=== PATIENT | male | born 1975 | race Caucasian/White ===

== ENCOUNTER 2024-08-12 08:54 | Emergency (ER) | payer SELFPAY ==
[2024-08-12 09:07] VITALS: BP 110/62; PULSE 63
[2024-08-12 09:19] VITALS: BP 99/63; PULSE 112; RESP 16; TEMP 37.1; O2SAT 95; BMI 16.4
[2024-08-12 10:10] LABS: MANUAL DIFF FLAG NO
[2024-08-12 10:12] LABS: Basophils Absolute Auto 0.1 X10*3/uL (0.0-0.2); Basophils Percent Auto 0.6 % (0-2); Hematocrit 39.1 % (42.0-52.0); Hemoglobin 12.4 g/dl (14.0-18.0); Imm Gran Abs Auto 0.03 X10*3/uL (0.00-0.03); Imm Gran Pct Auto 0.3 % (0.0-0.4); Lymphocytes Absolute Auto 0.8 X10*3/uL (1.2-4.9); Lymphocytes Percent Auto 7.6 % (20-40); Mean Corpuscular HGB Conc 31.7 g/dl (31.0-36.0); Mean Corpuscular Volume 85.2 fL (80.0-98.0); Monocytes Percent Auto 9.2 % (2-11); Neutrophils Absolute Auto 8.5 x10*3/uL (2.0-8.3); Neutrophils Percent Auto 82.3 % (45-73); Platelet Count 555 X10*3/uL (160-400); Red Blood Count 4.59 X10*6/uL (4.60-5.80); Red Cell Distribution Width 14.7 % (11.0-16.0); White Blood Count 10.3 X10*3/uL (4.8-10.8)
[2024-08-12 10:29] LABS: Alanine Aminotransferase < 6 U/L (0-40); Albumin Level 3.5 g/dL (3.5-5.0); Alkaline Phosphatase 127 U/L (39-117); Anion Gap 13 (12-20); Aspartate Amino Transferase 30 U/L (5-37); Bilirubin Total 0.3 mg/dL (0.0-1.0); Blood Urea Nitrogen 12 mg/dL (9-16); Calcium 9.2 mg/dL (8.4-10.2); Carbon Dioxide 30 mmol/L (22-29); Chloride 94 mmol/L (96-108); Estimated Glomerular Filt Rate > 60; Glucose Random 92 mg/dL (60-115); Potassium 4.5 mmol/L (3.3-5.1); Sodium 132 mmol/L (135-145); Total Protein 8.1 g/dL (6.5-8.0)
== END 2024-08-12 17:43 | disposition left against medical advice (07) ==
LOC: HO.ED 17:13
PROVIDERS: Emergency Provider Emergency Medicine
DX: R20.0 Anesthesia of skin (principal); M79.672 Pain in left foot; M79.671 Pain in right foot; F17.210 Nicotine dependence, cigarettes, uncomplicated; Z59.02 Unsheltered homelessness; Z53.21 Procedure and treatment not carried out due to patient leaving prior to being seen by health care provider
CPT/HCPCS: 36415; 80053; 85025; 99281

== ENCOUNTER 2024-08-15 12:56 | Inpatient (IN) | payer SELFPAY ==
[2024-08-15] VITALS (11 sets, daily range): BP systolic 82–102; BP diastolic 49–69; PULSE 83–136; RESP 15–24; TEMP 36.7–37.2; O2SAT 93–100; BMI 15.8
--- NOTE | ~2024-08-15 | CT_ITS ---
CLINICAL HISTORY: sepsis CT abdomen and pelvis with contrast Comparison: None Findings: Elevated left hemidiaphragm with left sided pleural effusion and opacities partially visualized. Cystic changes on the right with subpleural cyst 6.7 cm. The gallbladder is somewhat contracted. No biliary ductal dilatation. The liver is enlarged with no focal abnormality. Splenic dome not imaged and otherwise the spleen is unremarkable. Adrenal glands are normal. Enhancement of bilateral kidneys with no ureteral stones and no hydronephrosis hydroureter. No bowel obstruction, pneumoperitoneum, or pneumatosis. Fluid-filled small bowel loops in lower abdomen and pelvis, likely mild small bowel ileus. Mild pelvic free fluid. Appendix is unremarkable. Pelvic structures within limits Mild atherosclerotic vascular disease. No aneurysm of the abdominal aorta. No acute osseous findings IMPRESSION: 1. Findings suggestive mild small bowel ileus. No bowel obstruction or pneumoperitoneum. 2. Mild pelvic free fluid. 3. Hepatomegaly. This document has been electronically signed by: Heaven Morales MD on 08/16/2024 04:26:45
--- NOTE | ~2024-08-15 | CT_ITS ---
CLINICAL HISTORY: SOB CT angiography chest with contrast. 3D Postprocessing. Comparison: None Findings: The heart is normal size. RV/LV ratio is normal. Thoracic aorta is normal in size with no aneurysm and no aortic dissection. No intraluminal filling defects in pulmonary arterial vessels to suggest pulmonary embolism. Significant volume loss in left hemithorax with truncated vessels but the existing vessels demonstrate no intraluminal filling defect. Significant changes in the left hemithorax with mediastinal shift to the left likely postoperative in nature. Within the left hemithorax no significant remaining lung parenchyma is visualized with left-sided pleural effusion and mottled air with larger airspaces toward the lung apex. The right lung is hyperexpanded and there are chronic appearing changes in the right upper lobe/right lung apex with thickening and cystic spaces. There is enlarged cyst in the right lower lobe anteriorly and inferiorly. Thyroid normal limits. No acute osseous process. IMPRESSION: 1. No pulmonary embolus. 2. Significant volume loss in left hemithorax with mediastinal shift to the left likely post pneumonectomy. In the left hemithorax there is fluid and mottled air with larger air loculation toward the lung apex. The acuity of this process is unclear as there are no previous studies. Infection is not excluded. 3. Hyperexpanded right lung with thickening in cystic changes and septations in the region of the apex and again this could be chronic but no previous studies are available for comparison. This document has been electronically signed by: Heaven Morales MD on 08/16/2024 04:37:34
--- NOTE | ~2024-08-15 | XR_ITS ---
EXAMINATION: XR CHEST CLINICAL INFORMATION: shortness of breath COMPARISON: Chest 01/03/2008 TECHNIQUE: 2 views of the chest were obtained. FINDINGS: There is chronic pleural/parenchymal changes in left lung with loss of left lung volume. Strands of chronic pleural and parenchymal scarring is seen in the right upper lobe is slightly hyperinflated right lung and contralateral shift to left. Heart size and great vessels are normal caliber. No gross bony abnormality seen. No pneumothorax. There is mild bilateral apical pleural thickening. XR/XR chest 2V IMPRESSION: Chronic left lung parenchymal scarring with loss of left lung volume and ipsilateral mediastinal shift. Than of chronic scarring atelectasis seen in the right upper lobe with hyperexpanded right lung. Electronically signed by: Yash Diaz MD 08/15/2024 02:07 PM [facility]
--- NOTE | 2024-08-15 13:07 | ED_ITS ---
HPI - General Adult General Chief complaint: Dyspnea Stated complaint: Diff breathing, weakness Time Seen by Provider: 08/15/24 15:35 Source: patient Mode of arrival: ambulatory Limitations: no limitations History of Present Illness HPI narrative: This is a 49 years old male presented to the emergency department complaining of generalized weakness cough generalized malaise. Symptoms have been going on for few days. Denies any fever or chills. He has a history of left upper lobe wedge resection he has a history of left pneumothorax and left pleurodesis in 2007 Onset (ago): day(s) Location: chest Radiation: non-radiation Severity: moderate Pain Consistency: constant Relieving factors: none Exacerbating factors: none Associated symptoms: denies other symptoms Related Data Home Medications ?Medication ?Instructions ?Recorded ?Confirmed No Known Home Meds 08/15/24 08/15/24 Allergies Allergy/AdvReac Type Severity Reaction Status Date / Time aspartame [Aspartame] Allergy Mild RED RINGS Verified 08/15/24 13:10 ON BODY TO [employer] saccharin [Saccharin] Allergy Mild RED RINGS Verified 08/15/24 13:10 ON BODY TO [employer] SWE[employer]EN[employer] ARTIFICIAL COLORING Allergy Mild UNKNOWN Uncoded 04/02/20 15:00 Review of Systems 2 Constitutional: Constitutional: Reports no additional constitutional complaints Respiratory: Respiratory: Reports no additional respiratory complaints and Reports chest congestion [facility] Past Medical History [facility] Narrative: Left pneumothorax/left pleurodesis/left wedge resection Social History Social History Smoked in Last 30 Days: Yes Use of substances other than those prescribed or required for medical reasons: Yes Substance Use Type: Marijuana Advance Directives: No Advance Directives Information Provided: Yes Physical Exam ED Vital Signs: Vital Signs - 24 hr 08/15/24 13:08 08/15/24 15:16 08/15/24 15:52 Temperature 98.1 F 99 F Pulse Rate 136 H 109 H 100 Respiratory Rate 18 21 H 24 H Blood Pressure 102/49 L 92/58 L Pulse Oximetry 98 95 96 Oxygen Delivery Method Room Air Room Air 08/15/24 16:07 08/15/24 16:26 08/15/24 16:45 Temperature Pulse Rate 99 99 99 Respiratory Rate 18 22 H 22 H Blood Pressure 97/69 93/64 96/64 Pulse Oximetry 97 96 96 Oxygen Delivery Method Room Air BMI result Body Mass Index 15.8 Looks not toxic Const General: cooperative, comfortable and no acute distress Nutritional Appearance: cachectic Orientation/consciousness: patient oriented x3 Limitations: no limitations HENMT Head: Yes normal to inspection General nose exam: Normal external nose present Face and sinus: Yes normal facial exam Mouth: Normal oral and palatal mucosa present Neck Neck: Yes normal visual inspection Chest Chest palpation & inspection: normal inspection of the chest Resp Effort & Inspection: normal respiratory effort Cardio Rate: regular rate Rhythm: regular rhythm GI Inspection: Yes normal to inspection Palpation (GI): Soft to palpation, not firm and nontender Skin General skin exam: no rashes or lesions noted and elasticity normal Lesions: no lesions Rashes: no rashes Neuro General: patient oriented x3 Cognition (Neuro): normal cognition Gait exam (Neuro): Normal gait present Motor exam (neuro): 5/5 motor strength present throughout Course Course Course Narrative: RME, this is a rapid medical exam performed by Jeffry Sim please refer to primary provider for complete H&P- 49-year-old male presents for evaluation of shortness of breath. He reports short of breath for about a week and 3 days of hemoptysis. He was tachycardic in triage. Plan for labs, chest x-ray. Reevaluation(s) Reevaluation #1: Patient looks well is not toxic-appearing his initial tachycardia is now resolved ;he has a map more than 65. White count noted lactic acid also noted. He was given 30 cc/kilos of IV fluids, he was given also IV antibiotic cefepime vanco. Chest x-ray reviewed by me is abnormal but he has a baseline abnormal chest x-ray. Clinical picture is consistent most likely with pneumonitis. TB comes to mind but he has been negative in the past, and tells me that he he has been admitted in the past a [facility] he was rule out for active TB. We will send the t spot anyway. I discussed the case with the hospitalist Dr. Cordova it is reasonable also to get chest CT which has been ordered. Clinically looks well he is eating and drinking his mentation is great , he has excellent capillary refill Time: 16:36 Medications Administered Generic Name Dose Route Start Last Admin Trade Name Freq PRN Reason Stop Dose Admin Vancomycin HCl 1,250 mg/ 250 mls @ 166.667 mls/hr 08/15/24 16:45 08/15/24 16:42 Sodium Chloride IV 08/15/24 18:14 166.67 mls/hr ONCE ONE Administration Sodium Chloride 1,000 mls @ 150 mls/hr 08/15/24 16:45 08/15/24 16:45 Ns IVCONT 150 mls/hr .[id number] JAKE Administration Discontinued Medications Generic Name Dose Route Start Last Admin Trade Name Freq PRN Reason Stop Dose Admin Cefepime HCl 2 gm in 50 mls @ 100 mls/hr 08/15/24 15:29 08/15/24 16:27 Maxipime IV 08/15/24 15:58 Infused ONCE ONE Infusion Sodium Chloride 1,497 mls @ 1,497 mls/hr 08/15/24 15:29 08/15/24 16:27 Ns 30 ml/kg infuse over 1 hr (1497 ml) 08/15/24 16:28 Infused IV Infusion .Q1H STA Medical Decision Making Medical Decision Making [facility] Narrative: Patient presented generalized weakness malaise will obtain a chest x-ray labs and reassess Differential Diagnosis Differential Diagnoses: The differential diagnosis associated with the presentation includes Flu/pneumonia/anemia Admission/Observation Consideration of admission/observation: Escalation of care including admission/observation considered Consult Healthcare Provider Management of the patient was discussed with: Hospitalist Lab Data [facility] Lab Attestation statement: I reviewed the patient's lab results. 08/15/24 13:37 08/15/24 13:37 Labs: Lab Results 08/15/24 Range/Units 13:37 WBC 25.4 H (4.8-10.8) X10*3/uL RBC 4.03 L (4.60-5.80) X10*6/uL Hgb 10.8 L (14.0-18.0) g/dl Hct 34.4 L (42.0-52.0) % MCV 85.4 (80.0-98.0) fL MCH 26.8 L (27.0-33.0) pg MCHC 31.4 (31.0-36.0) g/dl RDW 14.8 (11.0-16.0) % Plt Count 527 H (160-400) X10*3/uL MPV 8.7 L (9.4-12.4) fL Immature Gran % (Auto) 0.8 H (0.0-0.4) % Neut % (Auto) 84.9 H (45-73) % Lymph % (Auto) 5.9 L (20-40) % [place] % (Auto) 7.7 (2-11) % Eos % (Auto) 0.4 (0-4) % Baso % (Auto) 0.3 (0-2) % Lymph # (Auto) 1.5 (1.2-4.9) X10*3/uL [place] # (Auto) 2.0 H (0.1-1.2) X10*3/uL Eos # (Auto) 0.1 (0.0-0.4) X10*3/uL Baso # (Auto) 0.1 (0.0-0.2) X10*3/uL Abs Immat Gran (auto) 0.20 H (0.00-0.03) X10*3/uL Absolute Neuts (auto) 21.6 H (2.0-8.3) x10*3/uL Absolute Nucleated RBC 0.000 (0.0-0.012) X10*3/uL Nucleated RBC % (auto) 0.0 (0.0-0.2) /100WBC Smear Tech's Comments VERIFIED PT 12.4 (10.9-12.4) SEC INR 1.1 (0.9-1.1) Sodium 130 L (135-145) mmol/L Potassium 4.4 (3.3-5.1) mmol/L Chloride 92 L (96-108) mmol/L Carbon Dioxide 27 (22-29) mmol/L Anion Gap 15 (12-20) BUN 10 (9-16) mg/dL Creatinine 0.59 (0.5-1.4) mg/dL Estim Creat Clear Calc 104.5 Estimated GFR > 60 Random Glucose 91 (60-115) mg/dL Lactic Acid 4.0 H* (0.5-2.0) mmol/L Calcium 9.0 (8.4-10.2) mg/dL Total Bilirubin 0.4 (0.0-1.0) mg/dL AST 33 (5-37) U/L ALT 7 (0-40) U/L Alkaline Phosphatase 100 (39-117) U/L Troponin I High Sens 9.6 (<3.5-35.0) ng/L Total Protein 8.2 H (6.5-8.0) g/dL Albumin 3.6 (3.5-5.0) g/dL Lipase 23 (8-78) U/L Influenza Type A (PCR) NEGATIVE (Negative) Influenza Type B (PCR) NEGATIVE (Negative) RSV RNA Qual (PCR) NEGATIVE (Negative) SARS-CoV-2 RNA (RT-PCR) NEGATIVE (Negative) Independent Interpretation I performed an independent interpretation of an: Plain X-Ray Interpretation: Chronic changes Radiology Impression Discussion of test interpretation with radiology: I have reviewed the radiologist's reading. Radiologist Impression: FINDINGS: There is chronic pleural/parenchymal changes in left lung with loss of left lung volume. Strands of chronic pleural and parenchymal scarring is seen in the right upper lobe is slightly hyperinflated right lung and contralateral shift to left. Heart size and great vessels are normal caliber. No gross bony abnormality seen. No pneumothorax. There is mild bilateral apical pleural thickening. XR/XR chest 2V IMPRESSION: Chronic left lung parenchymal scarring with loss of left lung volume and ipsilateral mediastinal shift. Than of chronic scarring atelectasis seen in the right upper lobe with hyperexpanded right lung. Electronically signed by: Yash Diaz MD 08/15/2024 02:07 PM [facility] Dictated By: Yash Diaz MD Signed By: <Electronically signed by Yash Diaz MD in OV> 08/15/24 1407 External Record Review External record reviewed: Inpatient record 2008 record old [facility] Prescription Management I considered prescription management with: Antibiotic Social Determinants Patient?s care significantly limited by Social Determinants of Health including: Inadequate housing and Low income Critical Care Time Critical Care Time Critical Care Time: Yes Total Critical Care Time: 60 Attestation: Lactic acidosis sepsis Discharge Plan Discharge Clinical Impression: Acidosis, lactic Sepsis Qualifiers: Sepsis type: sepsis due to unspecified organism Sepsis acute organ dysfunction status: without acute organ dysfunction Qualified Code(s): A41.9 - Sepsis, unspecified organism Patient Disposition: Admitted As Inpatient Print Language: [place]
--- NOTE | 2024-08-15 13:08 | ECG_ITS ---
Test Reason : sob Blood Pressure : */* mmHG Vent. Rate : 131 BPM Atrial Rate : 131 BPM P-R Int : 136 ms QRS Dur : 80 ms QT Int : 296 ms P-R-T Axes : 78 177 54 degrees QTcB Int : 437 ms Sinus tachycardia Right atrial enlargement Right axis deviation Septal infarct Abnormal ECG When compared with ECG of 22-Dec-2007 13:03, Increase in ventricular rate Referred By: Rodrigo Sim Electronically Signed By: KAREEM PRICE
[2024-08-15 13:50] LABS: Basophils Absolute Auto 0.1 X10*3/uL (0.0-0.2); Basophils Percent Auto 0.3 % (0-2); Eosinophils Absolute Auto 0.1 X10*3/uL (0.0-0.4); Eosinophils Percent Auto 0.4 % (0-4); Hematocrit 34.4 % (42.0-52.0); Hemoglobin 10.8 g/dl (14.0-18.0); Imm Gran Pct Auto 0.8 % (0.0-0.4); Lymphocytes Absolute Auto 1.5 X10*3/uL (1.2-4.9); Lymphocytes Percent Auto 5.9 % (20-40); MANUAL DIFF FLAG SCAN; Mean Corpuscular HGB Conc 31.4 g/dl (31.0-36.0); Mean Corpuscular Hemoglobin 26.8 pg (27.0-33.0); Mean Corpuscular Volume 85.4 fL (80.0-98.0); Mean Platelet Volume 8.7 fL (9.4-12.4); Monocytes Percent Auto 7.7 % (2-11); Neutrophils Absolute Auto 21.6 x10*3/uL (2.0-8.3); Neutrophils Percent Auto 84.9 % (45-73); Platelet Count 527 X10*3/uL (160-400); Red Blood Count 4.03 X10*6/uL (4.60-5.80); Red Cell Distribution Width 14.8 % (11.0-16.0); SCAN SMEAR FLAG 1; White Blood Count 25.4 X10*3/uL (4.8-10.8)
[2024-08-15 13:55] LABS: INTERNATIONAL NORM RATIO 1.1 (0.9-1.1); Prothrombin Time 12.4 SEC (10.9-12.4)
[2024-08-15 14:04] LABS: Alanine Aminotransferase 7 U/L (0-40); Albumin Level 3.6 g/dL (3.5-5.0); Alkaline Phosphatase 100 U/L (39-117); Anion Gap 15 (12-20); Aspartate Amino Transferase 33 U/L (5-37); Bilirubin Total 0.4 mg/dL (0.0-1.0); Blood Urea Nitrogen 10 mg/dL (9-16); Carbon Dioxide 27 mmol/L (22-29); Chloride 92 mmol/L (96-108); Creatinine Clr Calc Pharmacy 104.5; Estimated Glomerular Filt Rate > 60; Glucose Random 91 mg/dL (60-115); Lipase 23 U/L (8-78); Potassium 4.4 mmol/L (3.3-5.1); Sodium 130 mmol/L (135-145); Total Protein 8.2 g/dL (6.5-8.0)
[2024-08-15 14:08] LABS: SLIDE REVIEW VERIFIED
[2024-08-15 14:12] LABS: Troponin-I High Sensitivity 9.6 ng/L (<3.5-35.0)
[2024-08-15 14:39] LABS: Influenza A PCR NEGATIVE (Negative); Influenza B PCR NEGATIVE (Negative); Resp Syncy Virus RNA Qual PCR NEGATIVE (Negative); SARS COV2 PCR INHOUSE NEGATIVE (Negative)
[2024-08-15] MEDS: SODIUM CHLORIDE 1497 ML IV (15:42)
[2024-08-15] MEDS: cefEPime HCl/D5W 2 GM/50 ML PIGGYBACK IV (15:42)
[2024-08-15 15:46] LABS: Reflex Lactate? Lactic Acid Added
--- NOTE | 2024-08-15 16:23 | PHA.MEDREC ---
Addendum entered by Gokul Lund RPh 08/15/24 16:40: Reviewed by [facility] Original Note: Pharmacy Consult ? Medication Reconciliation Pharmacy has completed the medication reconciliation. Patient states he is not on any home medications.
[2024-08-15] MEDS: vancomycin HCL 1,250 MG in 0.9 % Sodium Chloride 250 ML 166.67 MG IV (16:42)
[2024-08-15] MEDS: 0.9 % Sodium Chloride 1,000 ML 150 ML IVCONT (16:45)
[2024-08-15 17:07] LABS: ~Lactic Acid-LAB USE ONLY 0.9 mmol/L (0.5-2.0)
--- NOTE | 2024-08-15 18:17 | PM.IMHP ---
History of Present Illness Date of Service: 08/15/24 Chief Complaint: Shortness of breaths/productive cough 49-year-old gentleman with past medical history significant for left upper lobe wedge resection, history of left pneumothorax and left pleurodesis in 2007 at [facility], currently patient is homeless, smokes half pack per day, has not smoked marijuana in last 3 months, presented with shortness of breath of 1-2 weeks associated with cough productive of thick green mucus with specks of blood, patient has chronic productive cough, denies fever, no chills, complaining of night sweats, decreased appetite in last few days, has been chronically underweight but now worse, denies risk factors for HIV, no history of hep C, has been previously tested negative for HIV, has been worked up for TB in the past at [facility] and was negative, workup in the emergency room showed WBC 25.4 with normal WBC 10.3 on August 12, sodium 130 lactic acid 4 oxygenating 97 on room air, pulse 131 tachypneic, afebrile, chest x-ray showed chronic left lung parenchymal scarring with loss of left lung volume and ipsilateral mediastinal shift and hyper expanded right lung, patient treated in ED with IV vancomycin, IV cefepime and IV fluid bolus, blood cultures and T spot sent. Patient being admitted to [facility] with severe sepsis likely due to pneumonitis. Review of Systems Review of Systems: General no headache no dizziness no fever chills. CVS no chest pain, no palpitation. Respiratory shortness of breath and cough productive of thick green phlegm with specks of blood Gastrointestinal no nausea no vomiting, no abdominal pain no urgency no frequency Skin no rash All other system reviewed and are negative. [facility] Medical History (Updated 08/16/24 @ 12:41 by Joseph Britton MD) Tobacco use Lung nodules Pneumothorax, left Surgical History (Updated 08/16/24 @ 03:58 by Sarah Chahal NP) History of lung surgery Social History Housing: Homeless Do you presently have visiting nurse or other home services: No Patient Tobacco Use Status: Current everyday Tobacco user Cigarette Packs Per Day: 0.5 Cigarettes Per Day: 10.0 Substance Use Type: Marijuana service: No Meds Allergies Allergy/AdvReac Type Severity Reaction Status Date / Time aspartame [Aspartame] Allergy Mild RED RINGS Verified 08/15/24 13:10 ON BODY TO [employer]WE[employer] saccharin [Saccharin] Allergy Mild RED RINGS Verified 08/15/24 13:10 ON BODY TO [employer] SWEETEN[employer] ARTIFICIAL COLORING Allergy Mild UNKNOWN Uncoded 04/02/20 15:00 Active Medications: Current Medications Acetaminophen (Acetaminophen 325 Mg Tablet) 650 mg PO Q6H PRN PRN Reason: Pain, Mild 1-3,fever,headache Calcium Carbonate (Calcium Carbonate 750 Mg Tab.Chew) 750 mg PO Q4H PRN PRN Reason: Heartburn Enoxaparin Sodium (Enoxaparin Sodium 40 Mg/0.4 Ml Syringe) 40 mg SUBCUT Q24H [facility]1983 Sodium Chloride (Ns) 1,000 mls @ 100 mls/hr IVCONT .Q10H JAKE Last Admin: 08/15/24 16:45 Dose: 150 mls/hr Cefepime HCl (Maxipime) 2 gm in 50 mls @ 100 mls/hr IV Q8H [facility] Magnesium Hydroxide (Milk Of Magnesia 30 Ml Oral.Susp) 30 ml PO DAILY PRN PRN Reason: Constipation Melatonin (Melatonin 3 Mg Tablet) 6 mg PO BEDTIME PRN PRN Reason: Insomnia Ondansetron HCl (Ondansetron Hcl 4 Mg/2 Ml Vial) 4 mg IVPUSH Q8H PRN PRN Reason: Nausea and Vomiting Sodium Chloride (0.9 % Sodium Chloride Flush 3 Ml Syringe) 3 ml IVFLUSH QSHIFT [facility] Home Medications ?Medication ?Instructions ?Recorded ?Confirmed ?Last Taken ?Type No Known Home Meds 08/15/24 08/15/24 Unknown History Physical Exam Vital Signs and Narrative: Vital Signs: Last Vital Signs Temp 99 F 08/15/24 15:52 Pulse 99 08/15/24 16:45 Resp 22 H 08/15/24 16:45 BP 96/64 08/15/24 16:45 Pulse Ox 96 08/15/24 16:45 O2 Del Method Room Air 08/15/24 16:07 BMI result Body Mass Index 15.8 Const: Other: General awake alert x3, frail, resting comfortably in no acute distress. Anicteric sclera Neck supple no JVD. CVS regular rate rhythm, Respiratory lungs coarse breath sounds, no respiratory distress, no wheeze Gastrointestinal abdomen soft, non tender, bowel sounds audible, no guarding , no rigidity. Extremities no edema. Neuro non focal Skin no rash Appropriate affect Results Labs 08/16/24 04:50 08/16/24 04:50 Labs: Laboratory Results - last 24 hr 08/15/24 08/15/24 13:37 16:45 MCV 85.4 MCH 26.8 L MCHC 31.4 RDW 14.8 Plt Count 527 H MPV 8.7 L Immature Gran % (Auto) 0.8 H Neut % (Auto) 84.9 H Lymph % (Auto) 5.9 L [place]ike % (Auto) 7.7 Eos % (Auto) 0.4 Baso % (Auto) 0.3 Lymph # (Auto) 1.5 [place] # (Auto) 2.0 H Eos # (Auto) 0.1 Baso # (Auto) 0.1 Abs Immat Gran (auto) 0.20 H Absolute Neuts (auto) 21.6 H Absolute Nucleated RBC 0.000 Nucleated RBC % (auto) 0.0 Smear Tech's Comments VERIFIED PT 12.4 INR 1.1 Anion Gap 15 Estim Creat Clear Calc 104.5 Estimated GFR > 60 Random Glucose 91 Lactic Acid 4.0 H* Lactic Acid F/U @ 2Hr 0.9 Calcium 9.0 Total Bilirubin 0.4 AST 33 ALT 7 Alkaline Phosphatase 100 Troponin I High Sens 9.6 Total Protein 8.2 H Albumin 3.6 Lipase 23 Influenza Type A (PCR) NEGATIVE Influenza Type B (PCR) NEGATIVE RSV RNA Qual (PCR) NEGATIVE SARS-CoV-2 RNA (RT-PCR) NEGATIVE Imaging Radiologist's Impressions: Impressions Chest X-Ray 08/15/24 13:50 IMPRESSION: Chronic left lung parenchymal scarring with loss of left lung volume and ipsilateral mediastinal shift. Than of chronic scarring atelectasis seen in the right upper lobe with hyperexpanded right lung. Electronically signed by: Yash Diaz MD 08/15/2024 02:07 PM [facility] Assessment and Plan (1) Acidosis, lactic: Status: Acute (2) Sepsis: Qualifiers: Sepsis acute organ dysfunction status: without acute organ dysfunction Sepsis type: sepsis due to unspecified organism Qualified Code(s): A41.9 - Sepsis, unspecified organism Status: Acute Plan 49-year-old gentleman with past medical history significant for left upper lobe wedge resection, history of left pneumothorax and left pleurodesis in 2008 has been ruled out for TB and HIV in the past with no risk factors for HIV, currently homeless history of smoking presented to [facility] due to generalized weakness, shortness of breath , cough productive of thick green phlegm with specks of blood, night sweats chronic weight loss patient will be admitted to medical floor with a diagnosis of severe sepsis. Severe sepsis likely due to respiratory infection/pneumonitis Noted to have acute lactic acidosis, tachypnea, tachycardia, leukocytosis Sepsis focused exam done Influenza, RSV and SARS CoV 2 RNA negative Treated with IV cefepime , IV vancomycin and IV fluid in ED, continue current antibiotic Cough medication/O2 as needed CT chest Pulmonary consult T spot sent, sputum for acid-fast bacilli, isolation for TB, check HIV Follow CBC, blood cultures and sputum culture Mild acute hyponatremia likely due to pulmonary source IV fluids/Follow BMP Tobacco use disorder declined nicotine patch, counseling done Underweight with BMI 15.8 Add supplements/nutrition consult DVT prophylaxis Lovenox subQ Full code In my clinical judgment patient require 2 night inpatient hospitalization for management of severe sepsis likely due to pneumonitis requiring IV fluids, IV antibiotics and expert consultation. Quality Stroke Does the patient have a stroke diagnosis?: No VTE Prior VTE?: No VTE Risk Level:: Medical - moderate - high VTE Device Contraindication: Treatment Not Indicated VTE Drug Contraindication: N/A - Med Ordered
[2024-08-15] MEDS: guaiFENesin LA 600 MG TAB.ER.12H PO (20:08)
[2024-08-15] MEDS: Enoxaparin Sodium 40 MG/0.4 ML SYRINGE SUBCUT (20:08)
[2024-08-15 20:22] LABS: Appearance Urine Clear; Color Urine Yellow; Glucose Urine UA Negative (Negative); Leukocyte Esterase Urine Negative (Negative); Nitrite Urine Negative (Negative); PH 6.5 (5.0-9.0); Specific Gravity - Urine 1.015 (1.005-1.025); UMIC TRIGGER UACC YES; Urine Blood Negative (Negative); Urine Ketones Trace mg/dL (Negative); Urine Protein 30 (1+) mg/dL (Neg-Trace)
[2024-08-15 20:27] LABS: Bacteria Urine None Seen (None Seen); RBC Urine 0-2 /HPF (0-2); Squamous Epithelial Cell Urine 0-2 /HPF (0-2); WBC Urine 0-5 /HPF (0-5)
[2024-08-15] MEDS: 0.9 % Sodium Chloride 1,000 ML 100 ML IVCONT (22:37)
[2024-08-15] MEDS: 0.9 % Sodium Chloride 1,000 ML 999 ML IV (22:37)
--- NOTE | 2024-08-15 23:41 | PC.NURSE ---
2227 MD made aware of low bp. ordered 1L NS, infused per sep. BP rechecks as documented. MD aware. pt reports he feels dizzy and foggy. but remains axox4 speaking full clear sentences. 2343 MD at bedside.
--- NOTE | 2024-08-15 23:52 | PM.EVENT ---
Event Note Date of Service: 08/15/24 Event Note: Patient hypotensive not responding to fluids, does not appear to be particularly symptomatic. Noted to have pigmented patches on hands, temples, and tongue, concern for adrenal insufficiency. Will add on cortisol level from 13:30 labs (earliest time that we have labs for) Starting hydrocortisone Time Spent With Patient Time: Total time managing care of this patient today ____ minutes.
[2024-08-16] VITALS (31 sets, daily range): BP systolic 72–122; BP diastolic 41–79; PULSE 47–96; RESP 12–28; TEMP 36–37.2; O2SAT 93–100; BMI 15.7
[2024-08-16] MEDS: Hydrocortisone Sod Succ/PF 100 MG VIAL IVPUSH (00:20)
[2024-08-16] MEDS: cefEPime HCl/D5W 2 GM/50 ML PIGGYBACK IV (00:20)
[2024-08-16] MEDS: 0.9 % Sodium Chloride Flush 3 ML SYRINGE IVFLUSH ×4 (00:21→21:36)
[2024-08-16 00:23] LABS: Cortisol Random 28.3 ug/dL
--- NOTE | 2024-08-16 01:20 | PC.NURSE ---
MD made aware of BP at this time, per MD to continue to monitor for map >65.
--- NOTE | 2024-08-16 02:14 | PC.NURSE ---
MD made aware of BP as documented. 78/46 with repeat of 82/46. states will consult to ICU, pt remains axox4 skin wpd.
[2024-08-16] MEDS: Norepinephrine Bitartrate/D5W 8 MG/250 ML PLAST..BAG 4.68 MG IVCONT (02:35)
--- NOTE | 2024-08-16 02:41 | PC.NURSE ---
received verbal order from Sarah GILL BOX OPERATOR of ICU to start levophed drip. started at 0235 with bp of 72/41 HR 92. GILL BOX OPERATOR at bedside now for admission. pt verbalizes understanding plan of care and denies further questions/concerns at this time.
[2024-08-16 02:45] LABS: MANUAL DIFF FLAG NO
[2024-08-16 02:46] LABS: Venous Blood Gas Refer to POC result
[2024-08-16 02:47] LABS: Basophils Percent Auto 0.1 % (0-2); Eosinophils Percent Auto 0.1 % (0-4); Hematocrit 28.4 % (42.0-52.0); Hemoglobin 9.1 g/dl (14.0-18.0); Imm Gran Abs Auto 0.09 X10*3/uL (0.00-0.03); Imm Gran Pct Auto 0.9 % (0.0-0.4); Lymphocytes Absolute Auto 0.7 X10*3/uL (1.2-4.9); Lymphocytes Percent Auto 6.2 % (20-40); Mean Corpuscular Hemoglobin 27.1 pg (27.0-33.0); Mean Corpuscular Volume 84.5 fL (80.0-98.0); Mean Platelet Volume 8.5 fL (9.4-12.4); Monocytes Absolute Auto 0.4 X10*3/uL (0.1-1.2); Monocytes Percent Auto 4.1 % (2-11); Neutrophils Absolute Auto 9.4 x10*3/uL (2.0-8.3); Neutrophils Percent Auto 88.6 % (45-73); Platelet Count 392 X10*3/uL (160-400); Red Blood Count 3.36 X10*6/uL (4.60-5.80); Red Cell Distribution Width 14.9 % (11.0-16.0); White Blood Count 10.6 X10*3/uL (4.8-10.8)
--- NOTE | 2024-08-16 02:54 | P.CONCC_ITS ---
History of Present Illness Data of Consult Service Date: 08/16/24 Requesting physician: Pako Wallace Primary Care Provider: None Physician HPI Reason for consult: Hypotension The patient is a 49-year-old male with a past medical history of left upper lobe wedge resection, history of left pneumothorax and left pleurodesis in 2007 at [facility], currently homeless,? tobacco use ( half a pack per day), who presented on 08/15/2024? to the emergency department with shortness of breath.? Patient reported 1-2 weeks of shortness of breath,? associated with a productive cough with thick green mucus and specks of blood.? Patient has chronic productive cough, denies fever, no chills, complaining of night sweats, decreased appetite in last few days, has been chronically underweight but now worse, denies risk factors for HIV, no history of hep C, From [facility] records, in 2016 he was being screen for TB,? patient also had lung nodulesbut patient left AMA before finishing workup,? was advised to follow up with outpatient pulmonary but never did Patient also reports living in [place] and just recently moved back to [facility], where he has been living in [facility]? for the last 2 months? Workup in the emergency room showed WBC 25.4 with normal WBC 10.3 on August 12, sodium 130 lactic acid 4 oxygenating 97 on room air, pulse 131 tachypneic, afebrile, chest x-ray showed chronic left lung parenchymal scarring with loss of left lung volume and ipsilateral mediastinal shift and hyper expanded right lung, patient treated in ED with IV vancomycin, IV cefepime and IV fluid bolus, blood cultures and T spot sent and admitted to hospital medicine with severe sepsis likely due to pneumonitis, treated with cefepime.? ? Initially patient blood pressures stable with systolic of 90s and MAPs >65,? but later during the evening patient patient dropped blood pressure to systolics of 80s to 70s, with no response to fluids requiring initiation of vasopressors.? Review of Systems 2 Review of Systems: Yes all other systems are reviewed and are negative [facility] Past Medical History Medical History (Updated 08/16/24 @ 03:59 by Sarah Chahal NP) Tobacco use Lung nodules Pneumothorax, left Surgical History Surgical History (Updated 08/16/24 @ 03:58 by Sarah Chahal NP) History of lung surgery Social History Social History Housing: Homeless Do you presently have visiting nurse or other home services: No Patient Tobacco Use Status: Current everyday Tobacco user Cigarette Packs Per Day: 0.5 Cigarettes Per Day: 10.0 Substance Use Type: Marijuana Meds Allergies Allergy/AdvReac Type Severity Reaction Status Date / Time aspartame [Aspartame] Allergy Mild [place] Verified 08/15/24 13:10 ON BODY TO [employer] saccharin [Saccharin] Allergy Mild [place] Verified 08/15/24 13:10 ON BODY TO [employer] SWE[employer]EN[employer] ARTIFICIAL COLORING Allergy Mild UNKNOWN Uncoded 04/02/20 15:00 Active Medications: Current Medications Acetaminophen (Acetaminophen 325 Mg Tablet) 650 mg PO Q6H PRN PRN Reason: Pain, Mild 1-3,fever,headache Calcium Carbonate (Calcium Carbonate 750 Mg Tab.Chew) 750 mg PO Q4H PRN PRN Reason: Heartburn Enoxaparin Sodium (Enoxaparin Sodium 40 Mg/0.4 Ml Syringe) 40 mg SUBCUT Q24H [facility] Last Admin: 08/15/24 20:08 Dose: 40 mg Guaifenesin (Guaifenesin La 600 Mg Tab.Er.12h) 600 mg PO BID [facility] Last Admin: 08/15/24 20:08 Dose: 600 mg Guaifenesin/Dextromethorphan (Guaifenesin Dm 100/10/5 Ml 5 Ml Syrup) 10 ml PO Q6H PRN PRN Reason: Cough Sodium Chloride (Ns) 1,000 mls @ 100 mls/hr IVCONT .Q10H [facility] Last Infusion: 08/16/24 02:46 Dose: 100 mls/hr Cefepime HCl (Maxipime) 2 gm in 50 mls @ 100 mls/hr IV Q8H [facility] Last Infusion: 08/16/24 00:50 Dose: Infused Norepinephrine Bitartrate (Levophed) 8 mg in 250 mls @ 0 mls/hr IVCONT .Q0M [facility]; Protocol Last Titration: 08/16/24 02:50 Dose: 0.09 mcg/kg/min, 8.42 mls/hr Magnesium Hydroxide (Milk Of Magnesia 30 Ml Oral.Susp) 30 ml PO DAILY PRN PRN Reason: Constipation Melatonin (Melatonin 3 Mg Tablet) 6 mg PO BEDTIME PRN PRN Reason: Insomnia Ondansetron HCl (Ondansetron Hcl 4 Mg/2 Ml Vial) 4 mg IVPUSH Q8H PRN PRN Reason: Nausea and Vomiting Sodium Chloride (0.9 % Sodium Chloride Flush 3 Ml Syringe) 3 ml IVFLUSH QSHIFT [facility] Last Admin: 08/16/24 00:21 Dose: 3 ml Home Medications ?Medication ?Instructions ?Recorded ?Confirmed ?Last Taken ?Type No Known Home Meds 08/15/24 08/15/24 Unknown History Physical Exam 2 Vital Signs: Vital Signs: Last Vital Signs Temp 96.8 F 08/16/24 02:14 Pulse 75 08/16/24 02:50 Resp 20 08/16/24 02:14 BP 96/53 L 08/16/24 02:50 Pulse Ox 94 08/16/24 02:14 O2 Del Method Room Air 08/16/24 02:14 BMI result Body Mass Index 15.8 Sepsis focus exam performed at 0300 Constitutional: Alert , frail looking, in no acute distress. Mental Status: Alert and oriented x3 Eyes: Pupils are equal, round, and reactive to light. Ear, Nose, and Throat: Poor dentition, Oropharynx clear, mucous membranes moist. Ears and nose without deformities. Trachea midline. Respiratory: Lungs diminished at bases, on room air Cardiovascular: S1, S2 regular. No murmurs, rubs, or gallops. Gastrointestinal: Abdomen soft, non-tender, non-distended. Normal bowel sounds. Neurologic: Cranial nerves II-XII are grossly intact bilaterally. No focal neurological deficits. Moves all extremities spontaneously. Skin: Nails yellow in color, skin duggan looking. Musculoskeletal:? Moving all 4 extremities upon request a major joints, there is no crepitus or tenderness.? The strength is 5/5 bilaterally and throughout all 4 extremities.? Gait not assessed at this point. Vascular:? 2+ pulses upper and lower extremities distally.? Psychiatric: Normal mood and affect. Results Labs 08/16/24 04:50 08/16/24 04:50 Labs: Short CBC 08/15/24 08/16/24 Range/Units 13:37 02:40 WBC 25.4 H 10.6 (4.8-10.8) X10*3/uL Hgb 10.8 L 9.1 L (14.0-18.0) g/dl Hct 34.4 L 28.4 L (42.0-52.0) % Plt Count 527 H 392 D (160-400) X10*3/uL BMP 08/15/24 13:37 Sodium 130 L Potassium 4.4 Chloride 92 L Carbon Dioxide 27 BUN 10 Creatinine 0.59 Calcium 9.0 Liver Function 08/15/24 Range/Units 13:37 Total Bilirubin 0.4 (0.0-1.0) mg/dL AST 33 (5-37) U/L ALT 7 (0-40) U/L Alkaline Phosphatase 100 (39-117) U/L Albumin 3.6 (3.5-5.0) g/dL Urine 08/15/24 Range/Units 20:13 Urine Color Yellow Urine Appearance Clear Urine pH 6.5 (5.0-9.0) Ur Specific [place] 1.015 (1.005-1.025) Urine Protein 30 (1+) H (Neg-Trace) mg/dL Urine Glucose (UA) Negative (Negative) mg/dL Assessment and Plan (1) Septic shock: Status: Acute (2) Tobacco use: Status: Acute (3) Underweight: Status: Acute Plan ?49-year-old male with a past medical history of ?left upper lobe wedge resection, history of left pneumothorax and left pleurodesis in 2007,? lung nodules,? tobacco use,? and homeless ? being transferred to ICU for management of? septic shock? likely from pulmonary illness Plan/assesment ?Septic shock:? patient initially admitted with severe sepsis likely due to respiratory infection,? worsening overnight progressing to septic shock as requiring pressors.? Patient had reported he previously ruled out for TB,? but from chart review from [facility] patient did not? complete treatment to rule out TB? infection. He also was noted to have lungs nodules but did not follow up with pulmonary.? Treated with? 1 dose of vancomycin,? and started on cefepime. Tspot send.? Urine negative for infection Influenza, RSV, SARS COVID, negative in the ED. ? Patient is on room air,? PE is less likely, but? Will obtain chest CTA? to rule out PE versus infectious source vs malignancy.? ?Will send? HIV,? sputum test for acid-fast bacilli and culture,? Legionella,? TSH, full respiratory panel CT of the abdomen for other possible source of infection? On Levophed. ? Will continue antibiotics.? Stop cefepime,? Broaden antibiotic coverage with vancomycin and Zosyn On norepinephrine, Wean off pressors when appropriate. ? Hyponatremia:? ? treated with fluids, now resolved Underweight: ?nutrition consulted Diet:? regular diet prophylaxis:? Lovenox sub cut, No GI prophylaxis at this time ? Critical care time:? X 60 minutes of critical care time ?Code? status:? FULL CODE?
[2024-08-16 02:55] LABS: VBG Base Excess 1.8 mmol/L; VBG HCO3 26 mmol/L (22-26); VBG pCO2 42 mmHg; VBG pO2 64 mmHg
[2024-08-16 02:59] LABS: Lactic Acid 0.8 mmol/L (0.5-2.0)
[2024-08-16] MEDS: iohexoL 350 MG/ML 100 ML INFUS..BTL 85 ML IV (03:08)
[2024-08-16 03:09] LABS: Alanine Aminotransferase < 6 U/L (0-40); Albumin Level 2.5 g/dL (3.5-5.0); Anion Gap 12 (12-20); Aspartate Amino Transferase 33 U/L (5-37); Bilirubin Total 0.3 mg/dL (0.0-1.0); Blood Urea Nitrogen 7 mg/dL (9-16); Calcium 7.6 mg/dL (8.4-10.2); Carbon Dioxide 24 mmol/L (22-29); Chloride 104 mmol/L (96-108); Creatinine Clr Calc Pharmacy 116.3; Estimated Glomerular Filt Rate > 60; Glucose Random 99 mg/dL (60-115); Magnesium 1.6 mg/dL (1.6-2.6); Phosphorus 2.6 mg/dL (2.7-4.5); Sodium 136 mmol/L (135-145); Total Protein 5.8 g/dL (6.5-8.0)
[2024-08-16 03:23] LABS: TSH reflex Free T4 0.69 uIU/mL (0.32-4.0)
[2024-08-16 03:46] LABS: Alkaline Phosphatase 81 U/L (39-117)
[2024-08-16 04:03] LABS: HIV AB/AG Nonreactive (Nonreactive); HIV Num 1 0.06 S/CO (0.00-0.99)
[2024-08-16] MEDS: Piperacillin Sodium/Tazobactam 4.5 GM in 0.9 % Sodium Chloride 100 ML IV ×4 (04:41→21:27)
[2024-08-16] MEDS: Albumin Human 25 % 100 ML 133.33 ML IV ×2 (05:00→05:49)
[2024-08-16 05:03] LABS: Hemoglobin 9.3 g/dl (14.0-18.0); Mean Corpuscular HGB Conc 32.1 g/dl (31.0-36.0); Mean Corpuscular Volume 84.1 fL (80.0-98.0); Mean Platelet Volume 8.4 fL (9.4-12.4); Platelet Count 416 X10*3/uL (160-400); Red Blood Count 3.45 X10*6/uL (4.60-5.80); Red Cell Distribution Width 14.8 % (11.0-16.0); White Blood Count 11.4 X10*3/uL (4.8-10.8)
[2024-08-16] MEDS: Lactated Ringers 1,000 ML 100 ML IVCONT ×2 (05:14→14:56)
[2024-08-16 05:32] LABS: Anion Gap 12 (12-20); Blood Urea Nitrogen 6 mg/dL (9-16); Calcium 7.8 mg/dL (8.4-10.2); Carbon Dioxide 23 mmol/L (22-29); Chloride 104 mmol/L (96-108); Creatinine Clr Calc Pharmacy 114.2; Estimated Glomerular Filt Rate > 60; Glucose Random 136 mg/dL (60-115); Potassium 3.7 mmol/L (3.3-5.1); Sodium 135 mmol/L (135-145)
[2024-08-16 05:49] LABS: Thyroid Stimulating Hormone 0.41 uIU/mL (0.32-4.0)
[2024-08-16 06:08] LABS: Albumin Level 2.8 g/dL (3.5-5.0)
[2024-08-16 06:20] LABS: Cortisol Random 68.3 ug/dL
--- NOTE | 2024-08-16 06:42 | PHA.PROG ---
Admission Date/Time: August 15, 2024 17:56 Indication: Sepsis Weight in k.9 kg Adjusted body weight in Kg: [place] body weight in Kg: Obesity Dosing Indication % IBW: Serum Creatinine - Last 168 Hours 08/15/24 08/16/24 08/16/24 13:37 02:40 04:50 Creatinine 0.59 0.53 0.54 Estimated CrCl and GFR - Last 168 Hours 08/15/24 08/16/24 08/16/24 13:37 02:40 04:50 Estim Creat Clear Calc 104.5 116.3 114.2 Estimated GFR > 60 > 60 > 60 Vancomycin Loading Dose: 1250mg Current Vancomycin Dosing Regimen: 750mg q8h Vancomycin Monitoring using AUC goal of 400 - 600 range with trough as surrogate marker: 515 mg/L Date and Time for next Vancomycin Level to be drawn: 08/17 @1200 Pharmacist Comments on Vancomycin Plan: Received a 1250mg dose once yesterday. Overnight ordered a once 750mg this morning but it wasn't given yet. Replaced with 750mg q8h. Vancomycin dosing will take advantage of [employer] as a clinical decision support tool that uses Bayesian modeling to calculate individual patient's pharmacokinetic parameters and forecast the patient's drug concentration time course with the target goal AUC 24 range of 400 - 600 mg/L/hr.
--- NOTE | 2024-08-16 07:02 | HO.SKINPHOTO ---
Location: Coccyx Category: PI
[2024-08-16] MEDS: vancomycin HCL 750 MG in 0.9 % Sodium Chloride 250 ML 265 MG IV ×3 (07:34→22:03)
[2024-08-16] MEDS: Calcium Gluconate/NaCl,Iso-Osm 1 GM/50 ML PLAST..BAG IV (07:37)
[2024-08-16] MEDS: guaiFENesin LA 600 MG TAB.ER.12H PO (07:37)
[2024-08-16] MEDS: Potassium Phosphate/NS 15 MMOL/250 ML PLAST..BAG 62.5 MMOL IV (07:37)
[2024-08-16] MEDS: Albumin Human 25 % 100 ML IV ×3 (09:29→20:24)
--- NOTE | 2024-08-16 09:35 | MHC.CLN ---
PT IS SEVERELY MALNOURISHED PT WITH MODERATELY DEPLETED SUBCUTANEOUS FAT AND SEVERELY DEPLETED MUSCLE MASS, BMI 15.7, WITH CHRONIC POOR PO INTAKE <75% X 6 MONTHS WITH INCREASED RISK SECONDARY TO HOMELESSNESS DIET RX: REGULAR-APPROPRIATE RECOMMEND ADDING ENSURE BID TO PROVIDE 700KCALS, 40G PROTEIN PT MAY BE AT RISK FOR RE-FEEDING MONITOR MG, PHOS, AND K+ CLOSELY MONITOR PO INTAKE AND ENCOURAGE SUPPLEMENTS SEE ALSO FULL CLINICAL NUTRITION ASSESSMENT
[2024-08-16 09:47] LABS: HBS Num1 0.57 mIU/mL (0-7.99); HBc Num1 0.07 S/CO (0.00-0.79); HBsAGNum1 0.43 S/CO (0.00-0.99); Hepatitis A Antibody IgM 0.18 Index (0-0.79); Hepatitis B Core Antibody Nonreactive (Nonreactive); Hepatitis B Surface Antigen Negative (Negative); ~Hepatitis A Antibody IgM Nonreactive (Nonreactive); ~Hepatitis B Surface Antibody NONREACTIVE (Nonreactive); ~Hepatitis C Antibody Nonreactive (Nonreactive)
--- NOTE | 2024-08-16 09:50 | MHC.CM.PN ---
Met with pt who presented to [facility] w/respiratory complaints and admitted to ICU w/sepsis. Pt A&O x4 but vague at times - ? d/t medical condition. Pt states he recently returned to [place] from [place] where he had been working. 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 Pt was camping in the [facility] upon return to [place]. He has no PCP or payor listed and states he uses the free [employer] bus for transportation. Pt states he has information on [employer] and [employer] as well as area shelters. [employer] resource book left in pt closet. He states he prefers to stay alone and would like a permanent address. Pt states he is somewhat estranged from family in the area and has limited supports. Call placed to [facility] financial resources to assist w/[facility] implementation - pt should be active with a standard plan in 2-3 days. Final d/c plan is ongoing: pt will likely d/c back to his encamp[place] versus a long term if he is in agreement. HCP declined: Pt will use [employer] transport at d/c.
[2024-08-16] MEDS: Fluconazole in NaCl,Iso-Osm 400 MG/200 ML PIGGYBACK 100 MG IV (11:41)
--- NOTE | 2024-08-16 12:38 | PM.CNPUL ---
History of Present Illness History of Present Illness Consult date: 08/16/24 Chief complaint: Pneumonia Narrative: 49-year-old gentleman, active 20 pack-year smoker with prior history of left-sided disease and wedge resection admitted on 08/15/[address]24 with dyspnea and hypoxia. CT chest with what appears to be stigmata of old abscesses and current left-sided pneumonia. Patient treated with empiric broad-spectrum antibiotics. HIV negative. T spot is pending. Review of Systems Constitutional: Constitutional: Denies daytime sleepiness, Denies excessive sweating, Denies fatigue, Denies fever(s), Denies lethargy, Denies malaise, Denies night sweats, Denies snoring and Reports weight loss Eyes: Eyes: Denies blurry vision and Denies itchy eyes ENT: Denies nasal congestion, Denies post nasal drip, Denies sinus pain, Denies sinus pressure and Denies other ( Thrush) Cardiovascular: Cardiovascular: Denies chest pain, Denies pedal edema, Denies dyspnea, Reports dyspnea on exertion, Denies orthopnea and Denies paroxysmal nocturnal dyspnea Respiratory: Respiratory: Reports cough, Denies hemoptysis, Reports excessive phlegm production, Denies dyspnea, Reports dyspnea on exertion, Denies snoring and Denies wheezing Gastrointestinal: Gastrointestinal: Denies abdominal pain and Denies heartburn Musculoskeletal: Musculoskeletal: Denies myalgias, Denies arthralgias and Denies joint swelling Integumentary/Breasts: Skin/Breast: Denies rash Neurologic: Denies memory loss and Denies seizure-like activity Psychiatric: Psychiatric: Denies abnormal sleep pattern, Denies anxiety and Denies memory loss Endocrine: Endocrine: Denies excessive sweating, Denies fatigue and Denies heat intolerance Hematologic/Lymphatic: Hematologic/Lymphatic: Denies easy bruising Allergic/Immunologic: Allergic/Immunologic: Denies itchy eyes, Denies seasonal rhinorrhea and Denies wheezing PMFSH Past Medical History Medical History (Updated 08/16/24 @ 12:41 by Joseph Britton MD) Tobacco use Lung nodules Pneumothorax, left Surgical History Surgical History (Updated 08/16/24 @ 03:58 by Sarah Chahal NP) History of lung surgery Social History Social History Housing: Homeless Do you presently have visiting nurse or other home services: No Patient Tobacco Use Status: Current everyday Tobacco user Cigarette Packs Per Day: 0.5 Cigarettes Per Day: 10.0 Substance Use Type: Marijuana service: No Meds Allergies Allergy/AdvReac Type Severity Reaction Status Date / Time aspartame [Aspartame] Allergy Mild RED [place]INGS Verified 08/15/24 13:10 ON BODY TO [employer] saccharin [Saccharin] Allergy Mild [place] Verified 08/15/24 13:10 ON BODY TO [employer] SWE[employer] ARTIFICIAL COLORING Allergy Mild UNKNOWN Uncoded 04/02/20 15:00 Active Medications: Current Medications Acetaminophen (Acetaminophen 325 Mg Tablet) 650 mg PO Q6H PRN PRN Reason: Pain, Mild 1-3,fever,headache Enoxaparin Sodium (Enoxaparin Sodium 40 Mg/0.4 Ml Syringe) 40 mg SUBCUT Q24H [facility] Last Admin: 08/15/24 20:08 Dose: 40 mg Guaifenesin/Dextromethorphan (Guaifenesin Dm 100/10/5 Ml 5 Ml Syrup) 10 ml PO Q6H PRN PRN Reason: Cough Norepinephrine Bitartrate (Levophed) 8 mg in 250 mls @ 0 mls/hr IVCONT .Q0M [facility]; Protocol Last Titration: 08/16/24 04:15 Dose: 0.07 mcg/kg/min, 6.55 mls/hr Piperacillin Sod/Tazobactam (Sod 4.5 gm/ Sodium Chloride) 100 mls @ 200 mls/hr IV Q6H [facility] Last Infusion: 08/16/24 10:18 Dose: Infused Lactated Ringer's (Lr) 1,000 mls @ 100 mls/hr IVCONT .Q10H [facility] Last Admin: 08/16/24 05:14 Dose: 100 mls/hr Albumin Human (Kedbumin 25 %) 100 mls @ 100 mls/hr IV Q6H [facility] Stop: 08/17/24 03:59 Last Infusion: 08/16/24 11:00 Dose: Infused Vancomycin HCl 750 mg/ Sodium (Chloride) 265 mls @ 265 mls/hr IV Q8H [facility] Last Infusion: 08/16/24 09:09 Dose: Infused Fluconazole (Diflucan) 400 mg in 200 mls @ 100 mls/hr IV Q24H [facility] Last Admin: 08/16/24 11:41 Dose: 100 mls/hr Pharmacy Consult (Consult Rx Vancomycin Dosing) 1 each MISCELLANE DAILY PRN PRN Reason: Consult order Sodium Chloride (0.9 % Sodium Chloride Flush 3 Ml Syringe) 3 ml IVFLUSH QSHIFT [facility] Last Admin: 08/16/24 07:33 Dose: 3 ml Home Medications ?Medication ?Instructions ?Recorded ?Confirmed ?Last Taken ?Type No Known Home Meds 08/15/24 08/15/24 Unknown History Physical Exam Vital Signs: Vital Signs: Last Vital Signs Temp 97.2 F 08/16/24 12:00 Pulse 72 08/16/24 12:00 Resp 26 H 08/16/24 12:00 BP 101/67 08/16/24 12:00 Pulse Ox 99 08/16/24 12:00 O2 Del Method Nasal Cannula 08/16/24 12:00 O2 Flow Rate 2 08/16/24 12:00 BMI result Body Mass Index 15.7 Const: General: no acute distress and alert Nutritional Appearance: cachectic Orientation/consciousness: Other orientation findings ( oriented) HEENT: Head: Yes atraumatic Eyes: General: appearance normal, both eyes and all related structures Sclerae: sclerae normal EOM: EOMs intact bilaterally Neck: Neck: Yes supple Lymphatic: no lymphadenopathy noted Resp: Effort & Inspection: normal respiratory effort and no use of accessory muscles Auscultation: other (Poor left-sided air movement) Cardio: Rate: regular rate Rhythm: regular rhythm Heart sounds: no gallops, no murmurs and no rubs Skin: General skin exam: other ( warm) Extrem: General: No clubbing, No cyanosis and No edema Results Laboratory Findings 08/16/24 04:50 08/16/24 04:50 ABG, PT/INR, D-dimer: PT/INR, D-dimer PT 12.4 SEC (10.9-12.4) 08/15/24 13:37 INR 1.1 (0.9-1.1) 08/15/24 13:37 Abnormal lab findings: Abnormal Labs 08/15/24 08/15/24 08/16/24 13:37 20:13 02:40 WBC 25.4 H RBC 4.03 L 3.36 L Hgb 10.8 L 9.1 L Hct 34.4 L 28.4 L MCH 26.8 L Plt Count 527 H MPV 8.7 L 8.5 L Immature Gran % (Auto) 0.8 H 0.9 H Neut % (Auto) 84.9 H 88.6 H Lymph % (Auto) 5.9 L 6.2 L Lymph # (Auto) 0.7 L [place] # (Auto) 2.0 H Abs Immat Gran (auto) 0.20 H 0.09 H Absolute Neuts (auto) 21.6 H 9.4 H Sodium 130 L Chloride 92 L BUN 7 L Random Glucose Lactic Acid 4.0 H* Calcium 7.6 L D Phosphorus 2.6 L Total Protein 8.2 H 5.8 L Albumin 2.5 L Urine Protein 30 (1+) H 08/16/24 04:50 WBC 11.4 H RBC 3.45 L Hgb 9.3 L Hct 29.0 L MCH Plt Count 416 H MPV 8.4 L Immature Gran % (Auto) Neut % (Auto) Lymph % (Auto) Lymph # (Auto) [place] # (Auto) Abs Immat Gran (auto) Absolute Neuts (auto) Sodium Chloride BUN 6 L Random Glucose 136 H Lactic Acid Calcium 7.8 L Phosphorus Total Protein Albumin 2.8 L Urine Protein Microbiology: Microbiology 08/16/24 05:00 Sputum - Expectorated Gram Stain - Final Assessment and Plan (1) Acute respiratory failure with hypoxia: Status: Acute (2) Pneumonia: Status: Acute Plan Impression: 49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 Recommendations: Agree with broad-spectrum antibiotic coverage. Sputum culture results are pending. Procedures Date of Service Date of Service: 08/16/24
[2024-08-16 13:04] LABS: Adenovirus PCR Not Detected (Not Detect.); Bordetella parapertussis PCR Not Detected (Not Detect.); Bordetella pertussis PCR Not Detected (Not Detect.); Chlamydia pneumoniae PCR Not Detected (Not Detect.); Coronavirus 229E PCR Not Detected (Not Detect.); Coronavirus HKU1 PCR Not Detected (Not Detect.); Coronavirus NL63 PCR Not Detected (Not Detect.); Coronavirus OC43 PCR Not Detected (Not Detect.); Human metapneumovirus PCR Not Detected (Not Detect.); Influenza A PCR Not Detected (Not Detect.); Influenza B PCR Not Detected (Not Detect.); Mycoplasma pneumoniae PCR Not Detected (Not Detect.); Parainfluenza 1 PCR Not Detected (Not Detect.); Parainfluenza 2 PCR Not Detected (Not Detect.); Parainfluenza 3 PCR Not Detected (Not Detect.); Parainfluenza 4 PCR Not Detected (Not Detect.); RSV PCR Not Detected (Not Detect.); Rhino/Enterovirus PCR Not Detected (Not Detect.)
[2024-08-16 13:09] LABS: SARS-CoV-2 PCR Not Detected (Not Detect.)
[2024-08-16] MEDS: Enoxaparin Sodium 40 MG/0.4 ML SYRINGE SUBCUT (18:05)
[2024-08-16 18:42] LABS: Anion Gap 13 (12-20); Blood Urea Nitrogen 10 mg/dL (9-16); Calcium 8.3 mg/dL (8.4-10.2); Carbon Dioxide 24 mmol/L (22-29); Chloride 108 mmol/L (96-108); Creatinine Clr Calc Pharmacy 91.6; Estimated Glomerular Filt Rate > 60; Glucose Random 103 mg/dL (60-115); Magnesium 1.6 mg/dL (1.6-2.6); Phosphorus 3.2 mg/dL (2.7-4.5); Potassium 4.3 mmol/L (3.3-5.1); Sodium 141 mmol/L (135-145)
[2024-08-16 19:27] LABS: Albumin Level 3.3 g/dL (3.5-5.0)
[2024-08-16] MEDS: Magnesium Sulfate/D5W 1 GM/100 ML PIGGYBACK IV (20:22)
[2024-08-17] VITALS (28 sets, daily range): BP systolic 92–117; BP diastolic 61–76; PULSE 49–87; RESP 12–32; TEMP 36–36.9; O2SAT 91–100; BMI 15.8
[2024-08-17] MEDS: Lactated Ringers 1,000 ML 100 ML IVCONT (00:59)
[2024-08-17] MEDS: guaiFENesin DM 100/10/5 ML 5 ML SYRUP 10 ML PO ×2 (03:07→10:53)
[2024-08-17] MEDS: Albumin Human 25 % 100 ML IV (03:08)
[2024-08-17] MEDS: Piperacillin Sodium/Tazobactam 4.5 GM in 0.9 % Sodium Chloride 100 ML IV ×4 (03:09→21:00)
[2024-08-17 05:35] LABS: MANUAL DIFF FLAG NO
[2024-08-17 05:46] LABS: Basophils Percent Auto 0.3 % (0-2); Eosinophils Percent Auto 0.3 % (0-4); Hematocrit 28.5 % (42.0-52.0); Hemoglobin 8.8 g/dl (14.0-18.0); Imm Gran Abs Auto 0.06 X10*3/uL (0.00-0.03); Imm Gran Pct Auto 0.6 % (0.0-0.4); Lymphocytes Absolute Auto 1.9 X10*3/uL (1.2-4.9); Mean Corpuscular HGB Conc 30.9 g/dl (31.0-36.0); Mean Corpuscular Hemoglobin 26.7 pg (27.0-33.0); Mean Corpuscular Volume 86.6 fL (80.0-98.0); Mean Platelet Volume 8.7 fL (9.4-12.4); Monocytes Absolute Auto 0.7 X10*3/uL (0.1-1.2); Monocytes Percent Auto 6.5 % (2-11); Neutrophils Percent Auto 74.3 % (45-73); Platelet Count 427 X10*3/uL (160-400); Red Blood Count 3.29 X10*6/uL (4.60-5.80); Red Cell Distribution Width 15.1 % (11.0-16.0); White Blood Count 10.8 X10*3/uL (4.8-10.8)
[2024-08-17 05:55] LABS: Albumin Level 3.6 g/dL (3.5-5.0); Anion Gap 11 (12-20); Blood Urea Nitrogen 7 mg/dL (9-16); Calcium 8.4 mg/dL (8.4-10.2); Carbon Dioxide 26 mmol/L (22-29); Chloride 108 mmol/L (96-108); Creatinine Clr Calc Pharmacy 104.1; Estimated Glomerular Filt Rate > 60; Glucose Random 103 mg/dL (60-115); Magnesium 1.8 mg/dL (1.6-2.6); Phosphorus 3.1 mg/dL (2.7-4.5); Potassium 3.7 mmol/L (3.3-5.1); Sodium 141 mmol/L (135-145)
[2024-08-17 06:01] LABS: Lactic Acid 2.1 mmol/L (0.5-2.0)
[2024-08-17] MEDS: vancomycin HCL 750 MG in 0.9 % Sodium Chloride 250 ML 265 MG IV ×3 (06:14→22:07)
[2024-08-17 07:31] LABS: Reflex Lactate? Lactic Acid Added
[2024-08-17 08:08] LABS: ~Lactic Acid-LAB USE ONLY 1.7 mmol/L (0.5-2.0)
--- NOTE | 2024-08-17 08:50 | P.PNCC_ITS ---
Subjective Subjective Date of Service: 08/17/24 Interval History: no significant overnight events Critical Care Time (minutes): 60 Physical Exam 2 Vital Signs: Vital Signs: Last Vital Signs Temp 98.5 F 08/17/24 08:00 Pulse 55 08/17/24 08:00 Resp 20 08/17/24 08:00 BP 108/73 08/17/24 08:00 Pulse Ox 95 08/17/24 08:00 O2 Del Method Nasal Cannula 08/17/24 08:00 O2 Flow Rate 1 08/17/24 08:00 BMI result Body Mass Index 15.8 Const: General: cooperative, healthy appearing, comfortable, no acute distress, well developed, alert, awake and Physically active O rientation/consciousness: patient oriented x3 HEENT: Head: Yes normal to inspection, Yes No palpable skull fracture present, Yes normocephalic and Yes atraumatic Eyes: General: appearance normal, both eyes and all related structures Neck: Neck: Yes normal visual inspection, Yes full ROM, Yes no meningeal signs, Yes trachea midline and Yes supple Chest: Chest palpation & inspection: normal inspection of the chest Resp: Other: some appreciable expiratory wheezing; no overt rales, rhonchi Effort & Inspection: normal respiratory effort Cardio: Rate: regular rate Rhythm: regular rhythm GI: Inspection: Yes normal to inspection, No Abdominal wall edema and No distended Palpation (GI): Soft to palpation, not firm, nontender, no guarding and not rigid Skin: General skin exam: no rashes or lesions noted Neuro: General: patient oriented x3, tone normal, moves all extremities, no meningeal signs and no focal motor deficits Extrem: General: Yes normal to inspection, Yes full ROM, Yes capillary refill normal and Yes no clubbing, cyanosis or edema Psych: Appearance: grossly normal Objective Data Labs 08/17/24 05:29 08/17/24 05:29 Labs: Laboratory Results - last 24 hr 08/16/24 08/16/24 08/16/24 02:49 09:00 18:13 WBC RBC Hgb Hct MCV MCH MCHC RDW Plt Count MPV Immature Gran % (Auto) Neut % (Auto) Lymph % (Auto) [place] % (Auto) Eos % (Auto) Baso % (Auto) Lymph # (Auto) [place] # (Auto) Eos # (Auto) Baso # (Auto) Abs Immat Gran (auto) Absolute Neuts (auto) Absolute Nucleated RBC Nucleated RBC % (auto) Sodium 141 Potassium 4.3 Chloride 108 Carbon Dioxide 24 Anion Gap 13 BUN 10 Creatinine 0.67 Estim Creat Clear Calc 91.6 Estimated GFR > 60 Random Glucose 103 Lactic Acid Lactic Acid F/U @ 2Hr Calcium 8.3 L D Phosphorus 3.2 Magnesium 1.6 Albumin 3.3 L Respiratory Panel Hernandez See Note Adenovirus (Rapid PCR) Not Detected B.pert (TEM-PCR) Not Detected B.parapertussis DNA PCR Not Detected C. pneumoniae DNA (PCR) Not Detected Coronavirus OC43 (PCR) Not Detected Coronavirus HKU1 (PCR) Not Detected Coronavirus 229E (PCR) Not Detected Coronavirus NL63 (PCR) Not Detected Hepatitis A IgM Ab Nonreactive Hep Bs Antigen Negative Hep Bs Antibody NONREACTIVE Hep B Core Total Ab Nonreactive Hepatitis C Ab (EIA) Nonreactive Human Metapneumovir PCR Not Detected Influenza A (RT-PCR) Not Detected Influenza B (RT-PCR) Not Detected M. pneumoniae (PCR) Not Detected Parainfluenza 1 (PCR) Not Detected Parainfluenza 2 (PCR) Not Detected Parainfluenza 3 (PCR) Not Detected Parainfluenza 4 (PCR) Not Detected RSV (PCR) Not Detected Entero/Rhino (PCR) Not Detected SARS-CoV-2 RNA (RT-PCR) Not Detected 08/17/24 08/17/24 05:29 07:47 WBC 10.8 RBC 3.29 L Hgb 8.8 L Hct 28.5 L MCV 86.6 MCH 26.7 L MCHC 30.9 L RDW 15.1 Plt Count 427 H MPV 8.7 L Immature Gran % (Auto) 0.6 H Neut % (Auto) 74.3 H Lymph % (Auto) 18.0 L [place] % (Auto) 6.5 Eos % (Auto) 0.3 Baso % (Auto) 0.3 Lymph # (Auto) 1.9 [place] # (Auto) 0.7 Eos # (Auto) 0.0 Baso # (Auto) 0.0 Abs Immat Gran (auto) 0.06 H Absolute Neuts (auto) 8.0 Absolute Nucleated RBC 0.000 Nucleated RBC % (auto) 0.0 Sodium 141 Potassium 3.7 Chloride 108 Carbon Dioxide 26 Anion Gap 11 L BUN 7 L Creatinine 0.59 Estim Creat Clear Calc 104.1 Estimated GFR > 60 Random Glucose 103 Lactic Acid 2.1 H* Lactic Acid F/U @ 2Hr 1.7 Calcium 8.4 Phosphorus 3.1 Magnesium 1.8 Albumin 3.6 Respiratory Panel Hernandez Adenovirus (Rapid PCR) B.pert (TEM-PCR) B.parapertussis DNA PCR C. pneumoniae DNA (PCR) Coronavirus OC43 (PCR) Coronavirus HKU1 (PCR) Coronavirus 229E (PCR) Coronavirus NL63 (PCR) Hepatitis A IgM Ab Hep Bs Antigen Hep Bs Antibody Hep B Core Total Ab Hepatitis C Ab (EIA) Human Metapneumovir PCR Influenza A (RT-PCR) Influenza B (RT-PCR) M. pneumoniae (PCR) Parainfluenza 1 (PCR) Parainfluenza 2 (PCR) Parainfluenza 3 (PCR) Parainfluenza 4 (PCR) RSV (PCR) Entero/Rhino (PCR) SARS-CoV-2 RNA (RT-PCR) Microbiology Microbiology Results: Microbiology 08/15/24 13:37 Blood - Venous Blood Culture - Preliminary No growth after 24 hours. 08/15/24 13:40 Blood - Venous Blood Culture - Preliminary No growth after 24 hours. 08/16/24 05:00 Sputum - Expectorated Gram Stain - Final Progress Note: A&P Assessment and plan (1) Pneumonia: Status: Acute (2) Underweight: Status: Acute Plan Patient is a 49 Y M undomiciled, w/ prior L pneumothorax, JACKE lobectomy, tobacco use, initially presenting to emergency department on 08/15 w/ non-specific symptoms and cough, found to be hypotensive necessitating vasopressors N: no acute issues CV: hypotension w/o overt signs of shock; norepinephrine gtt, wean as tolerated R: prior L pneumothorax, JACEK lobectomy; c/f pneumonia; NC, wean as tolerated GI: severe malnutrition; regular diet; to monitor for re-feeding syndrome : no acute issues H: no acute issues ID: c/f pneumonia; empiric vancomycin/zosyn/fluconazole; extensive infectious work-up pending E: no acute issues P: no acute issues S: of note, patient reports has sister; when offered to call sister to provide updates, patient deferred Quality Stroke Does the patient have a stroke diagnosis?: No VTE Prior VTE?: No VTE Risk Level:: Medical - moderate - high VTE Device Contraindication: Treatment Not Indicated VTE Drug Contraindication: N/A - Med Ordered
[2024-08-17] MEDS: 0.9 % Sodium Chloride Flush 3 ML SYRINGE IVFLUSH ×3 (09:11→21:07)
[2024-08-17] MEDS: Norepinephrine Bitartrate/D5W 8 MG/250 ML PLAST..BAG 6.55 MG IVCONT (09:34)
[2024-08-17] MEDS: Fluconazole in NaCl,Iso-Osm 400 MG/200 ML PIGGYBACK 100 MG IV (10:42)
[2024-08-17] MEDS: Doxycycline Monohydrate 100 MG CAPSULE PO ×2 (11:28→22:09)
[2024-08-17] MEDS: Nicotine 14 MG PATCH.TD24 TRANSDERMA (11:57)
[2024-08-17 12:14] LABS: Vancomycin Random 17.7 mcg/mL (15-20)
--- NOTE | 2024-08-17 12:25 | HE.PHANOTE ---
Re: Chris Renal function has improved. Trough returned at 17.7. Pt is therapeutic. Continue current dose of 750mg q8h, predicted AUC 552, predicted 17.2. Next trough 2/2 @ 1200.
[2024-08-17] MEDS: Enoxaparin Sodium 40 MG/0.4 ML SYRINGE SUBCUT (18:33)
[2024-08-17] MEDS: traZODone HCL 25 MG HALFTAB PO (20:59)
[2024-08-18] VITALS (27 sets, daily range): BP systolic 90–115; BP diastolic 55–78; PULSE 68–98; RESP 12–29; TEMP 36.1–36.8; O2SAT 91–99; BMI 16.0
[2024-08-18] MEDS: Piperacillin Sodium/Tazobactam 4.5 GM in 0.9 % Sodium Chloride 100 ML IV ×4 (03:07→21:09)
[2024-08-18 05:21] LABS: MANUAL DIFF FLAG NO
[2024-08-18 05:24] LABS: Basophils Percent Auto 0.4 % (0-2); Eosinophils Percent Auto 0.3 % (0-4); Hematocrit 30.6 % (42.0-52.0); Hemoglobin 9.5 g/dl (14.0-18.0); Imm Gran Abs Auto 0.05 X10*3/uL (0.00-0.03); Imm Gran Pct Auto 0.5 % (0.0-0.4); Lymphocytes Absolute Auto 1.4 X10*3/uL (1.2-4.9); Mean Corpuscular Hemoglobin 26.5 pg (27.0-33.0); Mean Corpuscular Volume 85.5 fL (80.0-98.0); Mean Platelet Volume 8.3 fL (9.4-12.4); Monocytes Absolute Auto 0.9 X10*3/uL (0.1-1.2); Monocytes Percent Auto 8.8 % (2-11); Neutrophils Absolute Auto 7.8 x10*3/uL (2.0-8.3); Platelet Count 506 X10*3/uL (160-400); Red Blood Count 3.58 X10*6/uL (4.60-5.80); Red Cell Distribution Width 15.2 % (11.0-16.0); White Blood Count 10.2 X10*3/uL (4.8-10.8)
[2024-08-18 05:42] LABS: Albumin Level 3.2 g/dL (3.5-5.0); Anion Gap 14 (12-20); Blood Urea Nitrogen 5 mg/dL (9-16); Carbon Dioxide 28 mmol/L (22-29); Chloride 103 mmol/L (96-108); Creatinine Clr Calc Pharmacy 111.4; Estimated Glomerular Filt Rate > 60; Glucose Random 82 mg/dL (60-115); Magnesium 1.6 mg/dL (1.6-2.6); Phosphorus 2.9 mg/dL (2.7-4.5); Potassium 3.7 mmol/L (3.3-5.1); Sodium 141 mmol/L (135-145)
[2024-08-18] MEDS: vancomycin HCL 750 MG in 0.9 % Sodium Chloride 250 ML 265 MG IV (06:17)
[2024-08-18] MEDS: Nicotine 14 MG PATCH.TD24 TRANSDERMA (07:38)
--- NOTE | 2024-08-18 09:09 | PM.CCPN ---
Subjective Subjective Date of Service: 08/18/24 Interval History: no significant overnight events Critical Care Time (minutes): 60 Physical Exam Vital Signs: Vital Signs: Last Vital Signs Temp 96.9 F 08/18/24 08:00 Pulse 75 08/18/24 08:00 Resp 25 H 08/18/24 08:00 BP 97/67 08/18/24 08:00 Pulse Ox 96 08/18/24 08:00 O2 Del Method Nasal Cannula 08/18/24 08:00 O2 Flow Rate 2 08/18/24 08:00 BMI result Body Mass Index 16.0 Const: Other: appreciably cachectic General: cooperative, healthy appearing, comfortable, no acute distress, alert, awake and Physically active Orientation/consciousness: patient oriented x3 HEENT: Head: Yes normal to inspection, Yes normocephalic and Yes atraumatic Eyes: General: appearance normal, both eyes and all related structures Neck: Neck: Yes normal visual inspection, Yes full ROM, Yes no meningeal signs, Yes trachea midline and Yes supple Chest: Chest palpation & inspection: normal inspection of the chest Resp: Other: some appreciable expiratory wheezing; no appreciable rales, rhonchi Effort & Inspection: normal respiratory effort Cardio: Rate: regular rate Rhythm: regular rhythm GI: Inspection: Yes normal to inspection, No Abdominal wall edema and No distended Palpation (GI): Soft to palpation, not firm, nontender, no guarding and not rigid Skin: General skin exam: no rashes or lesions noted Neuro: General: patient oriented x3, tone normal, moves all extremities, no meningeal signs and no focal motor deficits Extrem: General: Yes normal to inspection, Yes full ROM, Yes capillary refill normal and Yes no clubbing, cyanosis or edema Psych: Appearance: grossly normal Objective Data Labs 08/18/24 05:14 08/18/24 05:14 Labs: Laboratory Results - last 24 hr 08/17/24 08/18/24 11:55 05:14 WBC 10.2 RBC 3.58 L Hgb 9.5 L Hct 30.6 L MCV 85.5 MCH 26.5 L MCHC 31.0 RDW 15.2 Plt Count 506 H MPV 8.3 L Immature Gran % (Auto) 0.5 H Neut % (Auto) 76.0 H Lymph % (Auto) 14.0 L [place] % (Auto) 8.8 Eos % (Auto) 0.3 Baso % (Auto) 0.4 Lymph # (Auto) 1.4 [place] # (Auto) 0.9 Eos # (Auto) 0.0 Baso # (Auto) 0.0 Abs Immat Gran (auto) 0.05 H Absolute Neuts (auto) 7.8 Absolute Nucleated RBC 0.000 Nucleated RBC % (auto) 0.0 Sodium 141 Potassium 3.7 Chloride 103 Carbon Dioxide 28 Anion Gap 14 BUN 5 L Creatinine 0.56 Estim Creat Clear Calc 111.4 Estimated GFR > 60 Random Glucose 82 Calcium 8.0 L Phosphorus 2.9 Magnesium 1.6 Albumin 3.2 L Random Vancomycin 17.7 Microbiology Microbiology Results: Microbiology 08/16/24 05:00 Sputum - Expectorated Gram Stain - Final 08/16/24 05:00 Sputum - Expectorated Sputum Culture - Final 08/15/24 13:37 Blood - Venous Blood Culture - Preliminary No growth after 48 hours. 08/15/24 13:40 Blood - Venous Blood Culture - Preliminary No growth after 48 hours. Progress Note: A&P Assessment and plan (1) Hypotension: Status: Acute (2) Acute respiratory failure with hypoxia: Status: Acute (3) Pneumonia: Status: Acute (4) Underweight: Status: Acute Plan Patient is a 49 Y M undomiciled, w/ prior L pneumothorax, JACEK lobectomy, tobacco use, initially presenting to emergency department on 08/15 w/ non-specific symptoms and cough, found to be hypotensive necessitating vasopressors N: no acute issues CV: hypotension w/o overt signs of shock; norepinephrine gtt, wean as tolerated; started on midodrine this admission R: prior L pneumothorax, JACEK lobectomy; c/f pneumonia; NC, wean as tolerated GI: severe malnutrition; regular diet; to monitor for re-feeding syndrome : no acute issues H: no acute issues ID: c/f pneumonia; empiric vancomycin/zosyn/fluconazole; extensive infectious work-up pending E: no acute issues P: no acute issues S: of note, patient reports has sister; when offered to call sister to provide updates, patient deferred Quality Stroke Does the patient have a stroke diagnosis?: No VTE Prior VTE?: No VTE Risk Level:: Medical - moderate - high VTE Device Contraindication: Treatment Not Indicated VTE Drug Contraindication: N/A - Med Ordered
[2024-08-18] MEDS: 0.9 % Sodium Chloride Flush 3 ML SYRINGE IVFLUSH ×3 (09:28→23:05)
[2024-08-18] MEDS: Calcium Gluconate/NaCl,Iso-Osm 1 GM/50 ML PLAST..BAG IV (09:29)
[2024-08-18] MEDS: Albumin Human 25 % 50 ML 100 ML IV (09:29)
[2024-08-18] MEDS: Doxycycline Monohydrate 100 MG CAPSULE PO ×2 (11:23→22:00)
--- NOTE | 2024-08-18 11:44 | PC.NURSE ---
due to lack of 250mL bags of NS, MD and Pharmacy contacted to identify other compatible fluids. Pharm suggested LR or d5w. MD ordered relevant fluids changed from NS to d5w.
[2024-08-18 12:16] LABS: Vancomycin Trough 17.4 mcg/mL (10.0-20.0)
--- NOTE | 2024-08-18 12:21 | HE.PHANOTE ---
Re: Raffyo Stable renal function. Trough returned at 17.4, pt is therapeutic. Continue current dose of 175mg q8h, predicted AUC 506, predicted trough 15.1. Next trough 2/3 @ 1300.
[2024-08-18] MEDS: Midodrine HCl 2.5 MG TABLET PO ×2 (14:28→20:31)
[2024-08-18 14:33] LABS: TS Negative Control Passed; TS Panel A 1; TS Panel B 0; TS Positive Control Passed; TSpotTB Negative (Negative)
[2024-08-18] MEDS: DEXTROSE 5% IV ×2 (14:34→22:00)
[2024-08-18] MEDS: VANCOMYCIN HCL IV ×2 (14:34→22:00)
[2024-08-18] MEDS: Enoxaparin Sodium 40 MG/0.4 ML SYRINGE SUBCUT (18:09)
[2024-08-18] MEDS: Phentolamine Mesylate 5 MG VIAL SUBCUT (21:07)
[2024-08-19] VITALS (16 sets, daily range): BP systolic 99–110; BP diastolic 65–74; PULSE 73–93; RESP 12–27; TEMP 36.1–36.8; O2SAT 92–98; BMI 16.6
--- NOTE | 2024-08-19 01:19 | PC.NURSE ---
Received in RN to RN report that patients Levophed gtt had infiltrated in his right forearm, Levophed was paused and IV was removed prior to my assessment. Upon my initial assessment- previous IV site to right forearm was pink, tender, and firm- outlined with skin marker and SOCIAL RESEARCH ASSISTANT notified. SubQ Phentolamine Mesylate 5mg administered per MAR and extremity elevated on pillows.
[2024-08-19] MEDS: Piperacillin Sodium/Tazobactam 4.5 GM in 0.9 % Sodium Chloride 100 ML IV ×4 (03:37→22:00)
[2024-08-19 05:42] LABS: MANUAL DIFF FLAG NO
[2024-08-19 05:44] LABS: Basophils Absolute Auto 0.1 X10*3/uL (0.0-0.2); Basophils Percent Auto 0.6 % (0-2); Eosinophils Absolute Auto 0.1 X10*3/uL (0.0-0.4); Eosinophils Percent Auto 1.6 % (0-4); Hematocrit 31.2 % (42.0-52.0); Hemoglobin 9.9 g/dl (14.0-18.0); Imm Gran Abs Auto 0.04 X10*3/uL (0.00-0.03); Imm Gran Pct Auto 0.5 % (0.0-0.4); Lymphocytes Absolute Auto 1.5 X10*3/uL (1.2-4.9); Lymphocytes Percent Auto 17.1 % (20-40); Mean Corpuscular HGB Conc 31.7 g/dl (31.0-36.0); Mean Corpuscular Hemoglobin 26.8 pg (27.0-33.0); Mean Corpuscular Volume 84.6 fL (80.0-98.0); Mean Platelet Volume 8.2 fL (9.4-12.4); Monocytes Absolute Auto 0.9 X10*3/uL (0.1-1.2); Monocytes Percent Auto 9.9 % (2-11); Neutrophils Percent Auto 70.3 % (45-73); Platelet Count 495 X10*3/uL (160-400); Red Blood Count 3.69 X10*6/uL (4.60-5.80); Red Cell Distribution Width 15.2 % (11.0-16.0); White Blood Count 8.6 X10*3/uL (4.8-10.8)
[2024-08-19] MEDS: VANCOMYCIN HCL IV ×2 (06:00→16:56)
[2024-08-19] MEDS: DEXTROSE 5% IV ×2 (06:00→16:56)
[2024-08-19 06:01] LABS: Albumin Level 3.1 g/dL (3.5-5.0); Anion Gap 12 (12-20); Blood Urea Nitrogen 7 mg/dL (9-16); Calcium 8.6 mg/dL (8.4-10.2); Carbon Dioxide 29 mmol/L (22-29); Chloride 103 mmol/L (96-108); Creatinine Clr Calc Pharmacy 102.3; Estimated Glomerular Filt Rate > 60; Glucose Random 78 mg/dL (60-115); Magnesium 1.7 mg/dL (1.6-2.6); Phosphorus 4.1 mg/dL (2.7-4.5); Potassium 3.9 mmol/L (3.3-5.1); Sodium 140 mmol/L (135-145)
[2024-08-19] MEDS: Midodrine HCl 2.5 MG TABLET PO (08:37)
[2024-08-19] MEDS: Albumin Human 25 % 100 ML IV ×3 (08:37→20:32)
[2024-08-19] MEDS: Nicotine 14 MG PATCH.TD24 TRANSDERMA (08:37)
[2024-08-19] MEDS: 0.9 % Sodium Chloride Flush 3 ML SYRINGE IVFLUSH ×3 (08:38→20:33)
[2024-08-19] MEDS: Doxycycline Monohydrate 100 MG CAPSULE PO ×2 (10:15→22:45)
--- NOTE | 2024-08-19 11:10 | PM.CCPN ---
Subjective Subjective Date of Service: 08/19/24 Interval History: 49-year-old gentleman, active 20 pack-year smoker with prior history of left-sided disease and wedge resection admitted on 08/15/2024 with dyspnea, hypoxia, and hypotension initially requiring pressor support. CT chest with what appears to be stigmata of old abscesses and current left-sided pneumonia. Patient treated with empiric broad-spectrum antibiotics. HIV negative. T spot is negative. AFB smears are pending. Microbiologic workup so far unrevealing. No events overnight. Titrated off pressor support. Critical Care Time (minutes): 0 Physical Exam Vital Signs: Vital Signs: Last Vital Signs Temp 96.9 F 08/19/24 07:00 Pulse 79 08/19/24 09:44 Resp 24 H 08/19/24 09:00 BP 101/68 08/19/24 09:44 Pulse Ox 95 08/19/24 09:00 O2 Del Method Nasal Cannula 08/19/24 09:00 O2 Flow Rate 1 08/19/24 09:00 BMI result Body Mass Index 16.6 Const: General: no acute distress, alert and awake Eyes: Sclerae: sclerae normal EOM: EOMs intact bilaterally Neck: Neck: Yes no lymphadenopathy, Yes trachea midline and Yes supple Resp: Effort & Inspection: normal respiratory effort and no respiratory distress Auscultation: other (Poor left sided air movement) Cardio: Rate: regular rate Rhythm: regular rhythm Heart sounds: no gallops, no murmurs and no rubs GI: Palpation (GI): Soft to palpation and Other GI palpation findings present ( Nontender) Auscultation: normal bowel sounds Extrem: General: Yes no pedal edema, No clubbing and No cyanosis Objective Data Labs 08/19/24 05:33 08/19/24 05:33 Labs: Laboratory Results - last 24 hr 08/15/24 08/18/24 08/19/24 16:45 11:45 05:33 WBC 8.6 RBC 3.69 L Hgb 9.9 L Hct 31.2 L MCV 84.6 MCH 26.8 L MCHC 31.7 RDW 15.2 Plt Count 495 H MPV 8.2 L Immature Gran % (Auto) 0.5 H Neut % (Auto) 70.3 Lymph % (Auto) 17.1 L [place] % (Auto) 9.9 Eos % (Auto) 1.6 Baso % (Auto) 0.6 Lymph # (Auto) 1.5 [place] # (Auto) 0.9 Eos # (Auto) 0.1 Baso # (Auto) 0.1 Abs Immat Gran (auto) 0.04 H Absolute Neuts (auto) 6.0 Absolute Nucleated RBC 0.000 Nucleated RBC % (auto) 0.0 Sodium 140 Potassium 3.9 Chloride 103 Carbon Dioxide 29 Anion Gap 12 BUN 7 L Creatinine 0.61 Estim Creat Clear Calc 102.3 Estimated GFR > 60 Random Glucose 78 Calcium 8.6 D Phosphorus 4.1 Magnesium 1.7 Albumin 3.1 L Vancomycin Trough 17.4 TB Test (T-Spot) Com Negative TB Test Nil Control Passed TB Test Panel A 1 TB Test Panel B 0 TB Test Positive Cntrl Passed Microbiology Microbiology Results: Microbiology 08/16/24 05:00 Sputum - Expectorated Gram Stain - Final 08/16/24 05:00 Sputum - Expectorated Sputum Culture - Final 08/15/24 13:37 Blood - Venous Blood Culture - Preliminary No growth after 48 hours. 08/15/24 13:40 Blood - Venous Blood Culture - Preliminary No growth after 48 hours. Progress Note: A&P Assessment and plan (1) Severe protein-calorie malnutrition: Status: Acute (2) Acute respiratory failure with hypoxia: Status: Acute (3) Pneumonia: Status: Acute Plan Assessment: 49-year-old gentleman admitted with hypoxia and sepsis secondary to left-sided pneumonia, improving slowly Plan: Neuro: No acute issues. Cardiac: Septic shock resolved, titrated off pressor support. Pulmonary: Acute hypoxic respiratory failure secondary to left-sided pneumonia on a background of compromised left lung, improving slowly. Continue to titrate off supplemental oxygen as tolerated. Renal: No acute issues. Endo: No acute issues. GI: No acute issues. ID: Likely community-acquired pneumonia, microbiology studies so far unrevealing. AFB smears are pending. HIV is negative. Continue broad-spectrum antibiotics. Heme/Onc: No acute issues. Psych: No acute issues. Miscellaneous: No acute issues. Prophylaxis: Lovenox Diet: Regular Quality Stroke Does the patient have a stroke diagnosis?: No VTE Prior VTE?: No VTE Risk Level:: Medical - moderate - high VTE Device Contraindication: Treatment Not Indicated VTE Drug Contraindication: N/A - Med Ordered
--- NOTE | 2024-08-19 11:23 | MHC.CLN ---
PT IS SEVERELY MALNOURISHED PT WITH MODERATELY DEPLETED SUBCUTANEOUS FAT AND SEVERELY DEPLETED MUSCLE MASS, BMI 15.7, WITH CHRONIC POOR PO INTAKE <75% X 6 MONTHS WITH INCREASED RISK SECONDARY TO HOMELESSNESS DIET RX: REGULAR-APPROPRIATE PO INTAKE 75-100% X8 MEALS PT ALSO RECEIVING ENSURE BID PROVIDES 700KCALS, 40G PROTEIN MONITOR PO INTAKE AND ENCOURAGE SUPPLEMENTS
--- NOTE | 2024-08-19 14:30 | MHC.CM.PN ---
Pt to transfer to [facility] today: broad STR referrals placed as pt will require continued medical oversight. [employer] info should be available this week as [facility] financial stated he was approved. Barriers to placement include payor and homeless status: pt very malnourished and frail - has been residing in a camp in [facility] [place]. CM to follow for placement needs
[2024-08-19 16:06] LABS: Vancomycin Trough 14.8 mcg/mL (10.0-20.0)
--- NOTE | 2024-08-19 16:13 | HE.PHANOTE ---
Re: Chris Blackwell renal function. Trough returned at 14.8. Continue current dose of 750mg q8h with predicted AUC 540, predicted trough 16.5. Next trough 2/ @ 1400. Dose was held, due to delay in phlebotomy pulling trough.
--- NOTE | 2024-08-19 17:06 | PM.EVENT ---
Event Note Date of Service: 08/19/24 Event Note: 49-year-old gentleman admitted to telemetry with hypoxia and sepsis secondary to left-sided pneumonia, later transferred to ICU due to hypotension requiring pressors, patient treated in ICU with broad-spectrum antibiotics, And norepinephrine, IV albumin wean off pressors transferred to telemetry on 08/19/24 Acute hypoxic respiratory failure /septic shock secondary to left-sided pneumonia with prior history of left pneumothorax status post left upper lobectomy On IV Zosyn ,IV doxycycline and IV vancomycin will transition to by mouth antibiotic if remained stable Blood cultures x2 showed no growth, WBC normalized Sputum culture showed no growth Sputum for acid-fast bacillus and nocardia pending Hypoxia resolved 96% on room air, afebrile, BP soft likely chronic Tobacco use disorder declined nicotine patch counseling done Severe protein calorie malnutrition due to chronic poor by mouth intake/homeless, continue supplements, albumin improved from 2.5-3.1 DVT prophylaxis with Lovenox Full code Time Spent With Patient Time: Total time managing care of this patient today ____ minutes.
[2024-08-19] MEDS: Enoxaparin Sodium 40 MG/0.4 ML SYRINGE SUBCUT (17:53)
[2024-08-19 20:59] LABS: Glucose, Whole Blood 112 mg/dL (60-115)
[2024-08-20] MEDS: DEXTROSE 5% IV (00:20)
[2024-08-20] MEDS: VANCOMYCIN HCL IV (00:20)
[2024-08-20] MEDS: Albumin Human 25 % 100 ML IV (01:59)
[2024-08-20 03:29] VITALS: BP 98/67; PULSE 86; RESP 18; TEMP 36.3; O2SAT 95
[2024-08-20] MEDS: Piperacillin Sodium/Tazobactam 4.5 GM in 0.9 % Sodium Chloride 100 ML IV (04:50)
[2024-08-20 05:56] VITALS: BMI 16.7
[2024-08-20 06:45] LABS: MANUAL DIFF FLAG NO
[2024-08-20 06:50] LABS: Basophils Percent Auto 0.5 % (0-2); Eosinophils Absolute Auto 0.2 X10*3/uL (0.0-0.4); Hematocrit 30.2 % (42.0-52.0); Hemoglobin 9.3 g/dl (14.0-18.0); Imm Gran Abs Auto 0.05 X10*3/uL (0.00-0.03); Imm Gran Pct Auto 0.7 % (0.0-0.4); Lymphocytes Absolute Auto 1.3 X10*3/uL (1.2-4.9); Lymphocytes Percent Auto 17.9 % (20-40); Mean Corpuscular HGB Conc 30.8 g/dl (31.0-36.0); Mean Corpuscular Hemoglobin 26.4 pg (27.0-33.0); Mean Corpuscular Volume 85.8 fL (80.0-98.0); Mean Platelet Volume 8.3 fL (9.4-12.4); Monocytes Absolute Auto 0.8 X10*3/uL (0.1-1.2); Monocytes Percent Auto 10.5 % (2-11); Neutrophils Percent Auto 67.4 % (45-73); Platelet Count 547 X10*3/uL (160-400); Red Blood Count 3.52 X10*6/uL (4.60-5.80); Red Cell Distribution Width 15.5 % (11.0-16.0); White Blood Count 7.5 X10*3/uL (4.8-10.8)
[2024-08-20 07:10] LABS: Anion Gap 14 (12-20); Blood Urea Nitrogen 8 mg/dL (9-16); Calcium 9.1 mg/dL (8.4-10.2); Carbon Dioxide 29 mmol/L (22-29); Chloride 103 mmol/L (96-108); Creatinine Clr Calc Pharmacy 100.2; Estimated Glomerular Filt Rate > 60; Glucose Random 76 mg/dL (60-115); Magnesium 1.7 mg/dL (1.6-2.6); Phosphorus 3.6 mg/dL (2.7-4.5); Potassium 3.9 mmol/L (3.3-5.1); Sodium 142 mmol/L (135-145)
[2024-08-20 07:31] VITALS: BP 101/68; PULSE 79; RESP 18; TEMP 36.2; O2SAT 92
[2024-08-20] MEDS: Nicotine 14 MG PATCH.TD24 TRANSDERMA (08:51)
[2024-08-20] MEDS: levoFLOXacin 750 MG TABLET PO (08:51)
[2024-08-20] MEDS: 0.9 % Sodium Chloride Flush 3 ML SYRINGE IVFLUSH (08:51)
[2024-08-20 11:19] VITALS: BP 94/57; PULSE 89; RESP 17; TEMP 36.2; O2SAT 94
--- NOTE | 2024-08-20 13:48 | HO.PM.IMPN ---
Subjective Subjective Date of Service: 08/20/24 Interval History: Being followed for pneumonia Feeling better tolerating diet, denies fever, no chills, shortness of breath and cough has improved, continued to bring up yellow phlegm, tolerating diet, no acute events overnight. Review of Systems All other system reviewed and are negative Physical Exam Vital Signs: Vital Signs: Last Vital Signs Temp 97.2 F 08/20/24 11:19 Pulse 89 08/20/24 11:19 Resp 17 08/20/24 11:19 BP 94/57 L 08/20/24 11:19 Pulse Ox 94 08/20/24 11:19 O2 Del Method Room Air 08/20/24 11:19 O2 Flow Rate 1 08/19/24 07:00 BMI result Body Mass Index 16.7 Const: Other: General awake alert x3, frail, resting comfortably in no acute distress. Anicteric sclera Neck supple no JVD. CVS regular rate rhythm, Respiratory lungs clear breath sounds, no respiratory distress, no wheeze Gastrointestinal abdomen soft, non tender, bowel sounds audible, no guarding , no rigidity. Extremities no edema. Neuro non focal Skin no rash Appropriate affect Objective Data Active Medications Acetaminophen (Acetaminophen 325 Mg Tablet) 650 mg PO Q6H PRN PRN Reason: Pain, Mild 1-3,fever,headache Enoxaparin Sodium (Enoxaparin Sodium 40 Mg/0.4 Ml Syringe) 40 mg SUBCUT Q24H [facility] Last Admin: 08/19/24 17:53 Dose: 40 mg Documented By: MAICOL Guaifenesin/Dextromethorphan (Guaifenesin Dm 100/10/5 Ml 5 Ml Syrup) 10 ml PO Q6H PRN PRN Reason: Cough Last Admin: 08/17/24 10:53 Dose: 10 ml Documented By: FREDO Levofloxacin (Levofloxacin 750 Mg Tablet) 750 mg PO Q24H [facility] Last Admin: 08/20/24 08:51 Dose: 750 mg Documented By: MAICOL Nicotine (Nicotine 14 Mg Patch.Td24) 14 mg TRANSDERMA DAILY [facility] Last Admin: 08/20/24 08:51 Dose: 14 mg Documented By: MAICOL Sodium Chloride (0.9 % Sodium Chloride Flush 3 Ml Syringe) 3 ml IVFLUSH QSHIFT JAKE Last Admin: 08/20/24 08:51 Dose: 3 ml Documented By: MAICOL Trazodone HCl (Trazodone Hcl 25 Mg Halftab) 25 mg PO BEDTIME PRN PRN Reason: Insomnia Last Admin: 08/17/24 20:59 Dose: 25 mg Documented By: APURVA Labs 08/20/24 06:39 08/20/24 06:39 Labs: Laboratory Results - last 24 hr 08/19/24 08/19/24 08/20/24 14:22 20:49 06:39 MCV 85.8 MCH 26.4 L MCHC 30.8 L RDW 15.5 Plt Count 547 H MPV 8.3 L Immature Gran % (Auto) 0.7 H Neut % (Auto) 67.4 Lymph % (Auto) 17.9 L [place] % (Auto) 10.5 Eos % (Auto) 3.0 Baso % (Auto) 0.5 Lymph # (Auto) 1.3 [place] # (Auto) 0.8 Eos # (Auto) 0.2 Baso # (Auto) 0.0 Abs Immat Gran (auto) 0.05 H Absolute Neuts (auto) 5.0 Absolute Nucleated RBC 0.000 Nucleated RBC % (auto) 0.0 Anion Gap 14 Estim Creat Clear Calc 100.2 Estimated GFR > 60 POC Glucose 112 Random Glucose 76 Calcium 9.1 Phosphorus 3.6 Magnesium 1.7 Albumin 4.0 Vancomycin Trough 14.8 Assessment and Plan (1) Severe protein-calorie malnutrition: Status: Acute (2) Hypotension: Status: Acute (3) Pneumonia: Status: Acute (4) Acute respiratory failure with hypoxia: Status: Acute Plan 49-year-old gentleman admitted to telemetry with hypoxia and sepsis secondary to left-sided pneumonia, later transferred to ICU due to hypotension requiring pressors, patient treated in ICU with broad-spectrum antibiotics, And norepinephrine, IV albumin wean off pressors transferred to telemetry on 08/19/24 Acute hypoxic respiratory failure /septic shock secondary to left-sided pneumonia with prior history of left pneumothorax status post left upper lobectomy On IV Zosyn ,IV doxycycline and IV vancomycin will transition to by mouth Levaquin Blood cultures x2 showed no growth, WBC normalized Sputum culture showed no growth Concern for TB due to night sweat, hemoptysis, weight loss, Sputum for acid-fast bacillus and nocardia pending, follow sputum smear T spot negative Hypoxia resolved 96% on room air, afebrile, BP soft likely chronic Consult ID Acute hypotension due to septic shock resolved with pressors, seems to have chronic soft BP, patient asymptomatic Tobacco use disorder declined nicotine patch counseling done. Severe protein calorie malnutrition due to chronic poor by mouth intake/homeless, continue supplements, albumin improved from 2.5-3.1 DVT prophylaxis with Lovenox Full code Quality Stroke Does the patient have a stroke diagnosis?: No VTE Prior VTE?: No VTE Risk Level:: Medical - moderate - high VTE Device Contraindication: Treatment Not Indicated VTE Drug Contraindication: N/A - Med Ordered
--- NOTE | 2024-08-20 15:06 | HO.WOUND ---
Wound Consult: Initial 49yr old?male admitted to [facility] on 08/15/24 - See progress notes and H&P for detailed history.? Wound consult placed for Coccyx wound POA.? Patient agreeable to assessment and photo documentation.? Patient denies pain and or tenderness. He denies symptoms to the area, He denies incontinence despite evidence to suggest recent history of incontinence. Bilateral buttock / ischium are noted for dark hyperpigmented tissue evidence of previous chronic moisture. The coccyx appears to be a resolving pressure injury. The tissue currently is blanchable but over a bony prominence. Coccyx Etiology: ?Resurafacing Stage 2 Pressure injury ?Present on Admission Measurements: 1cm x 0.3cm x 0.2cm Wound Bed: dry scab - pink red intact blanchable tissue Drainage / Odor: None Edges: ? attached Siri wound: ?Chronic MASD noted - Hyperpigmentation noted No Induration, Fluctuance or Warmth noted Pain: denies Goals of Treatment: ? Foam dressing to aid in pressure redistribution and allow for continued skin resurfacing Recommendations: 1. Turn and Reposition every 2 hours and as needed for patient comfort.? Use pillows or wedges to support off loading positions. 2. Off Load all bony prominences with use of pillows and heel boots if needed.? Apply Preventative foams where needed. ? 3. Monitor for incontinence and moisture control, use barrier creams when needed for prevention and treatment. 4. Provide adequate and supplemental nutrition.? 5. Order low air loss mattress. 6. When applicable maintain blood glucose levels per Providers order. 7. Coccyx - Apply Skin prep allow to dry. Apply Sacral foam dressing, peel back and assess Q shift and change every 5 days and PRN. Off load pressure with Q2hr turns and pillows. Re-consult wound care Nurse for wound deterioration or wound changes.
[2024-08-20 15:39] VITALS: BP 102/72; PULSE 79; RESP 17; TEMP 36.1; O2SAT 95
[2024-08-20 16:49] LABS: Aspergillus Antigen Not Detected (Not Detected); Index Value 0.08 (<0.50)
[2024-08-20 19:53] VITALS: BP 99/69; PULSE 97; RESP 16; TEMP 36.2; O2SAT 99
[2024-08-20 23:37] VITALS: BP 101/70; PULSE 80; RESP 20; TEMP 36.4; O2SAT 95
[2024-08-21 00:04] LABS: A. Phagocytphilium DNA,RT-PCR NOT DETECTED (NOT DETECTED); Babesia Microti DNA, RT-PCR NOT DETECTED (NOT DETECTED); Borrelia Miyamotoi,DNA RT-PCR NOT DETECTED (NOT DETECTED); E.Chaffeensis DNA RT-PCR NOT DETECTED (NOT DETECTED); Lyme(Borrelia ssp)DNA RT-PCR NOT DETECTED (NOT DETECTED)
[2024-08-21 03:06] VITALS: BP 101/55; PULSE 86; RESP 20; TEMP 36.8; O2SAT 93
[2024-08-21 06:00] VITALS: BMI 16.1
[2024-08-21 07:16] VITALS: BP 103/66; PULSE 84; RESP 17; TEMP 36.2; O2SAT 94
[2024-08-21 08:13] LABS: Creatinine Clr Calc Pharmacy 102.9; Estimated Glomerular Filt Rate > 60
[2024-08-21] MEDS: Nicotine 14 MG PATCH.TD24 TRANSDERMA (08:38)
[2024-08-21] MEDS: levoFLOXacin 750 MG TABLET PO (08:39)
[2024-08-21 11:24] VITALS: BP 101/62; PULSE 85; RESP 20; TEMP 36.3; O2SAT 97
--- NOTE | 2024-08-21 12:10 | MHC.CLN ---
F/U PT IS SEVERELY MALNOURISHED SEE FULL CLINICAL NUTRITION ASSESSMENT DATED 08/16/24 WT UP 2.76# SINCE ADMISSION PO INTAKE REMAINS EXCELLENT DIET RX: REGULAR-APPROPRIATE PT ALSO RECEIVING ENSURE BID PROVIDES 700KCALS, 40G PROTEIN MONITOR PO INTAKE AND ENCOURAGE SUPPLEMENTS
--- NOTE | 2024-08-21 14:37 | P.PNIM_ITS ---
Subjective Subjective Date of Service: 08/21/24 Interval History: Being followed for left-sided pneumonia rule out TB Feeling significantly better, denies shortness of breath, intermittent cough no fevers, no chills Tolerating diet no nausea, no vomiting or abdominal pain. Review of Systems All other system reviewed and are negative Physical Exam 2 Vital Signs: Vital Signs: Last Vital Signs Temp 97.4 F 08/21/24 11:24 Pulse 85 08/21/24 11:24 Resp 20 08/21/24 11:24 BP 101/62 08/21/24 11:24 Pulse Ox 97 08/21/24 11:24 O2 Del Method Room Air 08/21/24 11:24 O2 Flow Rate 1 08/19/24 07:00 BMI result Body Mass Index 16.1 Const: Other: General awake alert x3, frail, resting comfortably in no acute distress. Anicteric sclera Neck supple no JVD. CVS regular rate rhythm, Respiratory lungs clear breath sounds, no respiratory distress, no wheeze Gastrointestinal abdomen soft, non tender, bowel sounds audible, no guarding , no rigidity. Extremities no edema. Neuro non focal Skin no rash Appropriate affect Objective Data Active Medications Acetaminophen (Acetaminophen 325 Mg Tablet) 650 mg PO Q6H PRN PRN Reason: Pain, Mild 1-3,fever,headache Enoxaparin Sodium (Enoxaparin Sodium 40 Mg/0.4 Ml Syringe) 40 mg SUBCUT Q24H [facility] Last Admin: 08/20/24 18:47 Dose: Not Given Documented By: MAICOL Non-Admin Reason: Patient Refused Guaifenesin/Dextromethorphan (Guaifenesin Dm 100/10/5 Ml 5 Ml Syrup) 10 ml PO Q6H PRN PRN Reason: Cough Last Admin: 08/17/24 10:53 Dose: 10 ml Documented By: SOLISPE Levofloxacin (Levofloxacin 750 Mg Tablet) 750 mg PO Q24H [facility] Last Admin: 08/21/24 08:39 Dose: 750 mg Documented By: JACINTA Nicotine (Nicotine 14 Mg Patch.Td24) 14 mg TRANSDERMA DAILY [facility] Last Admin: 08/21/24 08:38 Dose: 14 mg Documented By: JACINTA Sodium Chloride (0.9 % Sodium Chloride Flush 3 Ml Syringe) 3 ml IVFLUSH QSHIFT [facility] Last Admin: 08/21/24 08:39 Dose: Not Given Documented By: JACINTA Non-Admin Reason: no iv access Trazodone HCl (Trazodone Hcl 25 Mg Halftab) 25 mg PO BEDTIME PRN PRN Reason: Insomnia Last Admin: 08/17/24 20:59 Dose: 25 mg Documented By: APURVA Labs 08/20/24 06:39 08/21/24 06:57 Labs: Laboratory Results - last 24 hr 08/16/24 08/16/24 08/21/24 04:50 09:00 06:57 Hold Purple Top SEE NOTE Estim Creat Clear Calc 102.9 Estimated GFR > 60 A.phagocytophil DNA PCR NOT DETECTED Babesia microti DNA PCR NOT DETECTED Borrelia sp DNA (PCR) NOT DETECTED Borrelia miyamotoi (PCR) NOT DETECTED E.chaffeensis DNA (PCR) NOT DETECTED Aspergillus Ag (EIA) Not Detected Aspergillus Index Value 0.08 Tick-borne Disease PCR SEE NOTE Microbiology Microbiology Results: Microbiology 08/16/24 15:13 Nocardia Culture - Final Sputum - Expectorated 08/16/24 05:00 Direct Acid Fast Bacilli Smear - Final Sputum - Expectorated 08/15/24 13:37 Blood Culture - Final Blood - Venous No growth after 5 days. 08/15/24 13:40 Blood Culture - Final Blood - Venous No growth after 5 days. Assessment and Plan (1) Severe protein-calorie malnutrition: Status: Acute (2) Hypotension: Status: Acute (3) Pneumonia: Status: Acute (4) Acute respiratory failure with hypoxia: Status: Acute Plan 49-year-old gentleman admitted to telemetry with hypoxia and sepsis secondary to left-sided pneumonia, later transferred to ICU due to hypotension requiring pressors, patient treated in ICU with broad-spectrum antibiotics, And norepinephrine, IV albumin wean off pressors transferred to telemetry on 08/19/24 Acute hypoxic respiratory failure /septic shock secondary to left-sided pneumonia with prior history of left pneumothorax status post left upper lobectomy s/p iv Zosyn ,IV doxycycline and IV vancomycin thru 08/20 transition to by mouth Levaquin on 08/20 Blood cultures x2 showed no growth, WBC normalized Sputum culture showed no growth Concern for TB due to night sweat, hemoptysis, weight loss, Sputum for acid-fast bacillus 1/31 showed acid-fast bacilli Spoke with Infectious control Jaclyn ann, acid-fast culture from 08/19 sent for PCR report pending Sputum for Nocardia can not be process due to insufficient specimen T spot negative Hypoxia resolved 96% on room air, afebrile, BP soft likely chronic ID consult pending Case discussed with Dr. Britton will wait for PCR Acute hypotension due to septic shock resolved with pressors, seems to have chronic soft BP, patient asymptomatic Tobacco use disorder declined nicotine patch counseling done. Severe protein calorie malnutrition due to chronic poor by mouth intake/homeless, continue supplements, albumin improved from 2.5-3.1 DVT prophylaxis with Lovenox Full code Requires continued inpatient hospitalization due to final acid-fast smear /pcr report pending Patient has no PCP, homeless planned to be discharged to friend's house. Quality Stroke Does the patient have a stroke diagnosis?: No VTE Prior VTE?: No VTE Risk Level:: Medical - moderate - high VTE Device Contraindication: Treatment Not Indicated VTE Drug Contraindication: N/A - Med Ordered
--- NOTE | 2024-08-21 15:06 | MHC.CM.PN ---
CM met with pt. to inquire his DCP. He said that he has been staying in a tent by the [facility] in [place]. He is hoping that he can stay with a friend, he is waiting to hear. CM to follow for DC plan.
[2024-08-21 15:26] VITALS: BP 99/69; PULSE 82; RESP 17; TEMP 36.2; O2SAT 98
--- NOTE | 2024-08-21 16:59 | P.CNID_ITS ---
History of Present Illness Data of Consult Service Date: 08/21/24 Requesting physician: Pedrito Cordova Primary Care Provider: None Physician HPI Reason for consult: pneumonia,AFB on smear He presents with cough and shortness of breath for a month with no hemoptysis but weight loss. [place] but goes to [employer] to eat. He has no fever or chills. He has one sputum 08/16 AFB. He has had NANCIE wedge resection in 2007 but no tuberculosis mentioned and no treatment for TB. He has no family members with tuberculosis. He has negative Tspot and is HIV negative. Review of Systems 2 Review of Systems: Yes all other systems are reviewed and are negative PMFSH Past Medical History Medical History (Updated 08/21/24 @ 17:04 by Nicky Deng MD) Acid fast bacillus Tobacco use Lung nodules Pneumothorax, left Surgical History Surgical History History of lung surgery Social History Social History Housing: Homeless Do you presently have visiting nurse or other home services: No Comment: IND in the room Patient Tobacco Use Status: Current everyday Tobacco user Cigarette Packs Per Day: 0.5 Cigarettes Per Day: 10.0 Substance Use Type: Marijuana service: No Meds Allergies Allergy/AdvReac Type Severity Reaction Status Date / Time aspartame [Aspartame] Allergy Mild [place] RINGS Verified 08/15/24 13:10 ON BODY TO [employer]IFICIAL SWEETENERS saccharin [Saccharin] Allergy Mild RED RINGS Verified 08/15/24 13:10 ON BODY TO ARTIFICIAL SWEETENERS ARTIFICIAL COLORING Allergy Mild UNKNOWN Uncoded 04/02/20 15:00 Active Medications: Current Medications Acetaminophen (Acetaminophen 325 Mg Tablet) 650 mg PO Q6H PRN PRN Reason: Pain, Mild 1-3,fever,headache Enoxaparin Sodium (Enoxaparin Sodium 40 Mg/0.4 Ml Syringe) 40 mg SUBCUT Q24H [facility] Last Admin: 08/20/24 18:47 Dose: Not Given Guaifenesin/Dextromethorphan (Guaifenesin Dm 100/10/5 Ml 5 Ml Syrup) 10 ml PO Q6H PRN PRN Reason: Cough Last Admin: 08/17/24 10:53 Dose: 10 ml Levofloxacin (Levofloxacin 750 Mg Tablet) 750 mg PO Q24H [facility] Last Admin: 08/21/24 08:39 Dose: 750 mg Nicotine (Nicotine 14 Mg Patch.Td24) 14 mg TRANSDERMA DAILY [facility] Last Admin: 08/21/24 08:38 Dose: 14 mg Sodium Chloride (0.9 % Sodium Chloride Flush 3 Ml Syringe) 3 ml IVFLUSH QSHIFT [facility] Last Admin: 08/21/24 08:39 Dose: Not Given Trazodone HCl (Trazodone Hcl 25 Mg Halftab) 25 mg PO BEDTIME PRN PRN Reason: Insomnia Last Admin: 08/17/24 20:59 Dose: 25 mg Home Medications ?Medication ?Instructions ?Recorded ?Confirmed ?Last Taken ?Type No Known Home Meds 08/15/24 08/15/24 Unknown History Physical Exam 2 Vital Signs: Vital Signs: Last Vital Signs Temp 97.1 F 08/21/24 15:26 Pulse 82 08/21/24 15:26 Resp 17 08/21/24 15:26 BP 99/69 08/21/24 15:26 Pulse Ox 98 08/21/24 15:26 O2 Del Method Room Air 08/21/24 15:26 O2 Flow Rate 1 08/19/24 07:00 BMI result Body Mass Index 16.1 Const: General: cooperative Nutritional Appearance: cachectic HEENT: Head: Yes normal to inspection Face and sinus: Yes normal facial exam Mouth: Normal oral and palatal mucosa present Teeth and gingiva: d entition normal, abnormal tooth and associated gingiva and caries Eyes: General: appearance normal, both eyes and all related structures P upils: Equal, round and reactive pupils present Resp: Effort & Inspection: normal respiratory effort Cardio: Rate: regular rate Rhythm: regular rhythm GI: Palpation (GI): Soft to palpation and nontender : General: Yes no CVA tenderness Back/Spine/Pelvis: Back: no CVA tenderness Skin: General skin exam: no rashes or lesions noted Neuro: General: moves all extremities Cranial nerves: Yes Equal, round and reactive pupils present Extrem: General: Yes normal to inspection Psych: Appearance: grossly normal Results Labs 08/20/24 06:39 08/21/24 06:57 Labs: BMP 08/21/24 06:57 Creatinine 0.61 Microbiology Microbiology Results: Microbiology 08/16/24 15:13 Sputum - Expectorated Nocardia Culture - Final 08/16/24 05:00 Sputum - Expectorated Direct Acid Fast Bacilli Smear - Final 08/15/24 13:37 Blood - Venous Blood Culture - Final No growth after 5 days. 08/15/24 13:40 Blood - Venous Blood Culture - Final No growth after 5 days. 08/16/24 05:00 Sputum - Expectorated Gram Stain - Final 08/16/24 05:00 Sputum - Expectorated Sputum Culture - Final Assessment and Plan (1) Acid fast bacillus: Status: Acute (2) Severe protein-calorie malnutrition: Status: Acute (3) Pneumonia: Status: Acute Plan So far he has AFB seen but need to evaluate for tuberculosis with TB Xpert TB and Rifampin card (but if still cant get in [place] would do PCR based test to evaluate if TB or not) Doubt TB if Tspot negative and didnt have in past. 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 Follow up AFB outpatient and DPH if positive MTB Continue respiratory isolation while in hospital.
[2024-08-21 17:18] LABS: Pneumocystis jir Ql PCR NOT DETECTED; Pneumocystis jir source SPUTUM
[2024-08-21 20:05] VITALS: BP 95/66; PULSE 93; RESP 18; TEMP 35.9; O2SAT 96
[2024-08-21] MEDS: guaiFENesin DM 100/10/5 ML 5 ML SYRUP 10 ML PO (21:46)
[2024-08-21 23:08] VITALS: BP 101/62; PULSE 91; RESP 17; TEMP 36.4; O2SAT 96
[2024-08-22 04:00] VITALS: BP 108/68; PULSE 91; RESP 18; TEMP 36.3; O2SAT 93
[2024-08-22 06:00] VITALS: BMI 16.4
[2024-08-22 07:48] LABS: Creatinine Clr Calc Pharmacy 103.6; Estimated Glomerular Filt Rate > 60
[2024-08-22 08:00] VITALS: BP 103/69; PULSE 80; RESP 20; TEMP 35.6; O2SAT 94
[2024-08-22] MEDS: levoFLOXacin 750 MG TABLET PO (08:33)
[2024-08-22] MEDS: Nicotine 14 MG PATCH.TD24 TRANSDERMA (08:33)
--- NOTE | 2024-08-22 11:49 | P.DS_ITS ---
DS: Providers Provider Date of Service: 08/22/24 Date of admission: 08/15/24 17:56 Date of discharge: 08/22/24 Primary care physician: None Physician Consults: 08/15/24 18:02 Consult to Pulmonology Routine Consulting Provider: [facility] Reason for consultation: abnormal cxr Has provider been notified: No 08/16/24 06:25 Consult to Wound Care Routine Reason for consultation: PI to coccyx 08/20/24 13:50 Consult to Infectious Diseases Routine Consulting Provider: [facility] Reason for consultation: left side pneumonia r/o TB Has provider been notified: No Attending physician on discharge: Tyler Mancini Discharging clinician: Toyin Yan DS: Diagnosis Discharge Diagnosis (1) Acid fast bacillus: Status: Acute (2) Severe protein-calorie malnutrition: Status: Acute (3) Pneumonia: Status: Acute DS: Summary Hospital Course Hospital Course: From H&P on the day of admission 49-year-old gentleman with past medical history significant for left upper lobe wedge resection, history of left p neumothorax and left pleurodesis in 2007 at [facility], currently patient is homeless, smokes half pack per day, has not smoked marijuana in last 3 months, presented with shortness of breath of 1-2 weeks associated with cough productive of thick green mucus with specks of blood, patient has chronic productive cough, denies fever, no chills, complaining of night sweats, decreased appetite in last few days, has been chronically underweight but now worse, denies risk factors for HIV, no history of hep C, has been previously tested negative for HIV, has been worked up for TB in the past at [facility] and was negative, workup in the emergency room showed WBC 25.4 with normal WBC 10.3 on August 12, sodium 130 lactic acid 4 oxygenating 97 on room air, pulse 131 tachypneic, afebrile, chest x-ray showed chronic left lung parenchymal scarring with loss of left lung volume and ipsilateral mediastinal shift and hyper expanded right lung, patient treated in ED with IV vancomycin, IV cefepime and IV fluid bolus, blood cultures and T spot sent. Patient being admitted to [facility] with severe sepsis likely due to pneumonitis. Acute hypoxic respiratory failure /septic shock secondary to left-sided pneumonia with prior history of left pneumothorax status post left upper lobectomy s/p iv Zosyn ,IV doxycycline and IV vancomycin thru 08/20 transition to by mouth Levaquin on 08/20. Blood cultures x2 showed no growth, WBC normalized. RPP negative. HIV, hepatitis negative. Sputum culture showed no growth Sputum for acid-fast bacillus 08/16 showed acid-fast bacilli. acid-fast culture from 08/19 sent for PCR - report pending at the time of discharge. Sputum for Nocardia can not be process due to insufficient specimen T spot negative Hypoxia resolved 96% on room air, afebrile, BP soft likely chronic seen by pulmonology seen by ID - less likely TB given negative tspot; differential includes rhodococcus equi,nocardia or more likely Mycobacterium avium. recommended discharge with 10 days of oral levquin. Does not need to stay in hospital to wait for results of PCR test - likely to be a week or more. Safe for discharge to the community per ID. Recommend outpatient follow up confirmed pt can be reached at cell phone number is [phone] Acute hypotension due to septic shock resolved with pressors, seems to have chronic soft BP, patient asymptomatic Tobacco use disorder declined nicotine patch counseling done. Severe protein calorie malnutrition due to chronic poor by mouth intake/homeless, continue supplements, albumin improved from 2.5-3.1 Time Attestation Discharge Coordination Time (in mins): 36 Quality: Safe Use of Opioids Does Pt have an Active Cancer Diagnosis on the Problem List?: No Quality: Stroke Does the patient have a stroke diagnosis?: No Physical Exam Vital Signs: Vital Signs: Last Vital Signs Temp 96.1 F L 08/22/24 08:00 Pulse 80 08/22/24 08:00 Resp 20 08/22/24 08:00 BP 103/69 08/22/24 08:00 Pulse Ox 94 08/22/24 08:00 O2 Del Method Room Air 08/22/24 08:00 O2 Flow Rate 1 08/19/24 07:00 BMI result Body Mass Index 16.4 Const: General: cooperative, comfortable, no acute distress, alert and awake Nutritional Appearance: thin Orientation/consciousness: patient oriented x3 Resp: Effort & Inspection: normal respiratory effort, able to speak in complete sentences, no respiratory distress and no use of accessory muscles Neuro: General: patient oriented x3, moves all extremities and CN's II-XI intact bilaterally DS: Data Data Completed and Pending Labs on day of discharge: Laboratory Results - last 24 hr 08/16/24 08/22/24 10:43 07:20 Creatinine 0.62 Estim Creat Clear Calc 103.6 Estimated GFR > 60 Pneumocystis Source SPUTUM Pneumocyst jirovecii PCR NOT DETECTED Discharge Plan Discharge Anticipated Discharge Date/Time: 08/22/24 12:03 Patient Disposition: Home, Self-Care Discharge Diagnosis: acute respiratory failure with hypoxia, pneumonia; acid fast bacilli Referrals: Nicky Deng MD [Physician] - 2 Weeks Physician,None [Primary Care Provider] - 1 Week Discharge Medications: New levofloxacin 750 mg Tablet 750 mg PO Q24H 8 Days Qty: 8 0RF Discharge Orders: Discharge Order (Routine); Ordered 08/22/24 Ordered By: Toyin Yan Activity on Discharge: As tolerated Stand Alone Forms: Patient Portal Discharge page Print Language: Montenegrin Care Plan Goals: see below Health Concerns: Acute hypoxic respiratory failure/septic shock secondary to left side pneumonia Acid-fast bacilli Severe protein calorie malnutrition Plan of Treatment: Recommend to complete 8 more days of oral levofloxacin Acid-fast PCR pending at the time of discharge recommend to obtain PCP call to schedule follow up appointment with ID in 1-2 weeks Assessment: see discharge summary
--- NOTE | 2024-08-22 12:31 | MHC.CM.PN ---
Pt has been medically cleared for DC, he will go home via [employer] bus, and stay with his friend, plan is self care.
[2024-08-23 07:08] LABS: Legionella Ag Urine Not Detected (Not Detected)
== END 2024-08-22 14:40 | disposition home or self-care (01) | DRG 871 ==
LOC: HO.ED 16:53 → HO.EDOVER 18:24 → HO.ICU 08-16 03:30 → HO.IMC 08-19 10:17
PROVIDERS: Internal Medicine; Internal Medicine Critical Care Medicine; Internal Medicine Pulmonary Disease; Physician Assistant; Registered Nurse Community Health; Admitting Provider Hospitalist; Emergency Provider Emergency Medicine; Visit Provider Physician Assistant Medical
DX: A41.9 Sepsis, unspecified organism (principal); E43 Unspecified severe protein-calorie malnutrition; R65.21 Severe sepsis with septic shock; J96.01 Acute respiratory failure with hypoxia; J18.9 Pneumonia, unspecified organism; Z59.02 Unsheltered homelessness; E87.1 Hypo-osmolality and hyponatremia; Z68.1 Body mass index [BMI] 19.9 or less, adult; B96.89 Other specified bacterial agents as the cause of diseases classified elsewhere; F17.210 Nicotine dependence, cigarettes, uncomplicated; Z71.6 Tobacco abuse counseling; Z90.2 Acquired absence of lung [part of]; Z20.822 Contact with and (suspected) exposure to COVID-19
CPT/HCPCS: 0241U; 36415; 71046; 71275; 74177; 80048; 80053; 80202; 81001; 82040; 82533; 82565; 82803; 82947; 83605; 83690; 83735; 84100; 84443; 84484; 85025; 85027; 85610; 86481; 86704; 86706; 86709; 86803; 87040; 87070; 87102; 87116; 87205; 87206; 87305; 87340; 87389; 87449; 87468; 87469; 87478; 87484; 87633; 87798; 93005; 99285; J0613; J0692; J1450; J1650; J1720; J2543; J2760; J3370; J3371; J3475; J7120; P9047; Q9967

== ENCOUNTER → 2024-08-15 13:08 | Outpatient (BNV) | payer SELFPAY | PROVIDERS: Emergency Provider Emergency Medicine; Visit Provider Internal Medicine | DX: I51.7 Cardiomegaly (principal); R00.0 Tachycardia, unspecified | CPT/HCPCS: 93010 ==

== ENCOUNTER → 2024-08-15 13:08 | Outpatient (BNV) | payer SELFPAY | PROVIDERS: Visit Provider Radiology Diagnostic Radiology | DX: J98.11 Atelectasis (principal); J98.59 Other diseases of mediastinum, not elsewhere classified | CPT/HCPCS: 71046 ==

== ENCOUNTER 2024-08-15 17:56 | Outpatient (BNV) | payer SELFPAY | END 2024-08-16 03:27 | PROVIDERS: Admitting Provider Hospitalist; Emergency Provider Emergency Medicine; Visit Provider Specialist | DX: R16.0 Hepatomegaly, not elsewhere classified (principal); J98.4 Other disorders of lung | CPT/HCPCS: 71275; 74177 ==

== ENCOUNTER → 2024-08-15 17:56 | Outpatient (BNV) | payer SELFPAY | PROVIDERS: Admitting Provider Hospitalist; Emergency Provider Emergency Medicine; Visit Provider Internal Medicine | DX: E43 Unspecified severe protein-calorie malnutrition (principal); I95.9 Hypotension, unspecified; J18.9 Pneumonia, unspecified organism; J96.01 Acute respiratory failure with hypoxia | CPT/HCPCS: 99223; 99232; 99239; 99499 ==

== ENCOUNTER → 2024-08-15 17:56 | Outpatient (BNV) | payer SELFPAY | PROVIDERS: Admitting Provider Hospitalist; Emergency Provider Emergency Medicine; Visit Provider Internal Medicine Pulmonary Disease | DX: J18.9 Pneumonia, unspecified organism (principal); J96.01 Acute respiratory failure with hypoxia | CPT/HCPCS: 99222 ==